=== PATIENT | female | born 1985 | race African-American/Black ===

== ENCOUNTER 2016-12-25 23:08 | Emergency (ER) | payer OTHER ==
[2016-12-25 23:32] VITALS: BP 131/77; PULSE 84; TEMP 98.6; BMI 32.8
[2016-12-26 00:09] LABS: BASOPHIL 0.2 % (0-2.0); EOSINOPHIL 1.1 % (0-4.5); MCH 26.7 pg (25.7-33.7); MCHC 32.8 g/dl (32.0-36.0); MEAN CELL VOLUME 81.3 fl (80-96); MEAN PLT VOLUME 8.1 fl (7.5-11.1); NEUTROPHILS 73.7 % (42.8-82.8); PLATELET COUNT 227 K/MM3 (134-434); RDW 14.9 % (11.6-15.6)
--- NOTE | 2016-12-26 00:16 | PDOC ---
History of Present Illness - General Chief Complaint: Vaginal Bleeding Stated Complaint: VAGINAL BLEEDING Time Seen by Provider: 12/25/16 23:12 - History of Present Illness Initial Comments: 12/26/16 00:01 CHIEF COMPLAINT: vaginal bleeding HISTORY OF PRESENT ILLNESS: 31 yo F (unknown EGA) with PMH of substance abuse presents to ED with vaginal bleeding since yesterday. Patient states she had a positive test two weeks ago and noticed some blood when she wipes over the last two days. She reports being on a methadone program for heroin abuse, she states she "started using heroin again when I got out of skilled nursing two weeks ago, I think the last time I used it was about a week ago." No recent travel or sick contacts. PAST MEDICAL HISTORY: Denies past medical history FAMILY HISTORY: Denies SOCIAL HISTORY: Currently on methadone program, last reported heroin use 1 week ago. Current smoker, 8 cigarettes daily. Marijuana use, 1 joint daily. Denies alcohol use. SURGICAL HISTORY: Denies ALLERGIES: No known drug allergies REVIEW OF SYSTEMS General/Constitutional: Denies fever or chills. Denies weakness, weight change. HEENT: Denies change in vision. Denies ear pain or discharge. Denies sore throat. Cardiovascular: Denies chest pain or shortness of breath. Respiratory: Denies cough, wheezing, or hemoptysis. Gastrointestinal: Denies nausea, vomiting, diarrhea or constipation. Denies rectal bleeding. Genitourinary: "I was spotting a little yesterday and I have a lot of mucus coming out." Denies dysuria, frequency, or change in urination. Musculoskeletal: Denies joint or muscle swelling or pain. Denies neck or back pain. Skin: Denies rash or easy bruising. Neurologic: Denies headache, vertigo, loss of consciousness, or loss of sensation. PHYSICAL EXAM General Appearance: Well-appearing, appropriately dressed. No apparent distress , no intoxication. HEENT: EOMI, PERRLA, normal ENT inspection, normal voice, TMs normal, pharynx normal. No conjunctival pallor. No photophobia, scleral icterus. Neck: Supple. Trachea midline. No tenderness, rigidity, carotid bruit, stridor , lymphadenopathy, or thyromegaly. Respiratory/Chest: Lungs CTAB. No shortness of breath, chest tenderness, respiratory distress, accessory muscle use. No crackles, rales, rhonchi, stridor , wheezing, dullness Cardiovascular: RRR. S1, S2. Gastrointestinal/Abdominal: Normal bowel sounds. Abdomen soft, non-distended. No tenderness or rebound tenderness. No organomegaly, pulsatile mass, guarding , hernia, hepatomegaly, splenomegaly. Pelvic: External genitalia normal without lesions. Vaginal vault with copious amount of thick yellow/green discharge. Cervix is long and closed. No cervical motion tenderness. Uterus is nontender and normal in size. Adnexa are nontender and without masses. Musculoskeletal/Extremities: Normal inspection. FROM of all extremities, normal capillary refill. Pelvis Stable. No CVA tenderness. No tenderness to extremities, pedal edema, swelling, erythema or deformity. Integumentary: Appropriate color, dry, warm. No cyanosis, erythema, jaundice or rash Neurologic: sanitation superintendent II-XII intact. Fully oriented, alert. Appropriate mood/affect. Motor strength 5/5. No appreciable EOM palsy, facial droop or sensory deficit. Past History - Past Medical History Allergies/Adverse Reactions: Allergies Allergy/AdvReac Type Severity Reaction Status Date / Time No Known Allergies Allergy Verified 12/25/16 23:31 Home Medications: Ambulatory Orders Acetaminophen [Tylenol .Regular Strength -] 650 mg PO Q4H PRN #0 tablet Ibuprofen [Motrin -] 600 mg PO Q4H PRN #0 tablet 04/10/13 Asthma: No Cancer: No Cardiac Disorders: No Diabetes: No HTN: No Seizures: No Thyroid Disease: No - Psycho/Social/Smoking Cessation Hx Suicidal Ideation: No Smoking Status: Yes Smoking History: Never smoked Have you smoked in the past 12 months: No Number of Cigarettes Smoked Daily: 3 Information on smoking cessation initiated: No Hx Alcohol Use: No Drug/Substance Use Hx: No Hx Substance Use Treatment: No *Physical Exam - Vital Signs Last Vital Signs Temp Pulse Resp BP Pulse Ox 98.6 F 84 20 131/77 99 12/25/16 23:31 12/25/16 23:31 12/25/16 23:31 12/25/16 23:31 12/25/16 23:31 ED Treatment Course - LABORATORY CBC & Chemistry Diagram: 12/25/16 23:51 Medical Decision Making - Medical Decision Making 12/26/16 01:33 31 yo F (unknown EGA) with PMH of substance abuse presents to ED with vaginal bleeding since yesterday. -CBC, T&S, beta hcg Pelvic exam with copious yellow/green discharge. Will treat for Ct/GC. -Ceftriaxone 250 mg IM -Azithromycin 1g po beta hcg ~40k -TV US to eval IUP/FHT 12/26/16 02:16 TV US: Findings: There is a live intrauterine gestation in breech orientation. A posterior placenta has a normal appearance, grade 1. A four-chamber heart is demonstrated with a heart rate of 132 beats per minute. measurements correspond to a gestational age of 23 weeks 4 days. The amniotic fluid is within normal limits. The fluid index is 12.3 cm, within normal limits. On endovaginal images the cervix appears slightly foreshortened to approximately 2.8 cm in length with funneling. Impression: Live intrauterine gestation of approximately 23 weeks 4 days in breech orientation. Slight foreshortening and funneling of the cervix. Read by: Hugh Lau M.D. Patient reassessed; nauseous and dry heaving. -10 mg [place], 25 mg Benadryl. Advised patient to f/u with OBGYN this week, referral provided. Advised patient of signs and symptoms for return to ER; patient verbalized understanding and agrees to plan. 12/26/16 02:35 *DC/Admit/Observation/Transfer Diagnosis at time of Disposition: Vaginal bleeding in Qualifiers: Trimester: second trimester Qualified Code(s): O46.92 - Antepartum hemorrhage, unspecified, second trimester - Discharge Dispostion Admit: No - Referrals Referrals: Angie Green MD [Staff Physician] - - Patient Instructions Printed Discharge Instructions: DI for Vaginal Bleeding During Additional Instructions: You MUST follow up with an OBGYN doctor THIS WEEK for further management of your . If you can, please stop using any heroin, marijuana, or cigarettes to protect your baby. If you experience severe vaginal bleeding ( more than one soaked pad an hour), headache, palpitations, abdominal pain, or any new or worsening symptoms, please return to the ER immediately.
[2016-12-26] MEDS ORDERED: AZITHROMYCIN 250 MG TABLET (FP) PO ONE (00:33)
[2016-12-26] MEDS ORDERED: AZITHROMYCIN 250 MG TABLET (FP) ONE (01:26)
[2016-12-26] MEDS ORDERED: cefTRIAXone SODIUM 1 GM VIAL ONE (01:27)
[2016-12-26] MEDS ORDERED: LIDOCAINE HCL/PF 1% SDV 5ML VIAL ONE (01:27)
[2016-12-26] MEDS ORDERED: diphenhydrAMINE HCL 25 MG CAPSULE (FP) PO ONE ×2 (02:25→03:01)
[2016-12-26] MEDS ORDERED: METOCLOPRAMIDE HCL 10 MG TABLET (FP) PO ONE ×2 (02:25→03:01)
--- NOTE | 2016-12-26 02:48 | PDOC ---
*Physical Exam - Vital Signs Last Vital Signs Temp Pulse Resp BP Pulse Ox 98.6 F 84 20 131/77 99 12/25/16 23:31 12/25/16 23:31 12/25/16 23:31 12/25/16 23:31 12/25/16 23:31 ED Treatment Course - LABORATORY CBC & Chemistry Diagram: 12/25/16 23:51 - ADDITIONAL ORDERS Additional order review: Laboratory Results 12/25/16 12/25/16 23:51 23:51 Beta HCG, Quant 22988.3 Blood Type A POSITIVE Antibody Screen Negative 12/25/16 23:51 RBC 4.18 MCV 81.3 MCHC 32.8 RDW 14.9 D MPV 8.1 D Neutrophils % 73.7 Lymphocytes % 16.0 Monocytes % 9.0 Eosinophils % 1.1 Basophils % 0.2 - Medications Given in the ED: ED Medications Discontinued Medications Generic Name Dose Route Start Last Admin Trade Name Freq PRN Reason Stop Dose Admin Azithromycin 1,000 mg 12/26/16 00:33 12/26/16 01:53 Zithromax - PO 12/26/16 00:34 1,000 mg ONCE ONE Administration Ceftriaxone Sodium 250 mg 12/26/16 00:33 12/26/16 01:52 Rocephin - IM 12/26/16 00:34 250 mg ONCE ONE Administration Medical Decision Making - Medical Decision Making 12/26/16 02:48 agree with care from DENISHA Méndez *DC/Admit/Observation/Transfer Diagnosis at time of Disposition: Vaginal bleeding in Qualifiers: Trimester: second trimester Qualified Code(s): O46.92 - Antepartum hemorrhage, unspecified, second trimester - Referrals Referrals: Angie Green MD [Staff Physician] - - Patient Instructions Printed Discharge Instructions: DI for Vaginal Bleeding During Additional Instructions: You MUST follow up with an OBGYN doctor THIS WEEK for further management of your . If you can, please stop using any heroin, marijuana, or cigarettes to protect your baby. If you experience severe vaginal bleeding ( more than one soaked pad an hour), headache, palpitations, abdominal pain, or any new or worsening symptoms, please return to the ER immediately. - Post Discharge Activity
== END 2016-12-26 03:12 | disposition home or self-care (01) ==
LOC: EDBD → JER 23:08
DX: O46.92 Antepartum hemorrhage, unspecified, second trimester (principal); O99.322 Drug use complicating pregnancy, second trimester; F11.20 Opioid dependence, uncomplicated; Z3A.23 23 weeks gestation of pregnancy
CPT/HCPCS: 36415; 76815-TC; 84702; 85025; 86850; 86900; 86901; 87491; 87591; 99282-25

== ENCOUNTER 2016-12-26 13:20 | Inpatient (IN) | payer OTHER ==
[2016-12-26] MEDS ORDERED: AMPICILLIN - 100 ML IVPB ONE (13:45)
[2016-12-26 14:01] VITALS: BMI 31.3
[2016-12-26 15:00] LABS: ARTERIAL BLD GAS O2 SATURATION 54.4 % (90-98.9); ARTERIAL BLOOD GAS BASE EXCESS -9.4 meq/l (-2-2)
[2016-12-26 15:02] LABS: LPM/O2% ROOM AIR; PT. ON O2? NO
[2016-12-26 15:04] LABS: ARTERIAL BLD GAS O2 SATURATION 82.9 % (90-98.9); ARTERIAL BLOOD GAS BASE EXCESS -6.5 meq/l (-2-2); ARTERIAL BLOOD GAS HCO3 19.4 meq/L (22-26); ARTERIAL BLOOD GAS pH 7.15 (7.35-7.45); ARTERIAL BLOOD GAS pH 7.29 (7.35-7.45)
[2016-12-26 15:05] LABS: ARTERIAL BLOOD GAS PO2 30.5 mmHg (80-100)
[2016-12-26 15:06] LABS: ARTERIAL BLOOD GAS PO2 42.6 mmHg (80-100); LPM/O2% 21%; PT. ON O2? NO; TYPE OF O2 ROOM AIR
--- NOTE | 2016-12-26 15:11 | HP ---
Past Medical History - Primary Care Physician PCP:: Angie Green - Admission Chief Complaint: 25 yrs , 23.5 weeks PROM at 12.45 pm in the [facility], seen by Dr Carlos in the clinic sent by [facility] to L&D . h/o previous c/ section x2 History of Present Illness: Pt was seen In [address] 12/26/16 at 2.00 am , ,,due to c/o mucous discharge & cramps & spotting. x2 days she was evaluated, sono was done reported as 23.4 weeks , breech, cx short,2.3 cm funelling., post placenta, SLIUP . she was given ceftriaxone 250 mg im & po Zithromax 1 gm & sent home instructed to follow in the clinic . she was released from snf in [place] 2 weeks ago . 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 last she used heroin 1 week ago she admitted to the ER physician she also was smoked Marijuana yesterday . . . . History Source: Patient, Medical Record - Past Medical History CREDIT COLLECTIONS ANALYST: No: Dementia, Seizure Cardiovascular: No: HTN Pulmonary: No: Asthma ...: 4 ...Para: 2 ...Term: 2 (2 c/sections in 2009 & 2012) ...Induced : 1 ...EDC by [facility]: 04/20/17 (23.4 weeks today ) Heme/Onc: Yes: Anemia Infectious Disease: Yes: STD's (h/o chlamydia when 18 yrs old) - Past Surgical History Past Surgical History: Yes: (2009& 2012) Hx Myomectomy: No Hx Transabdominal Cerclage: No - Smoking History Smoking history: Current some day smoker Have you smoked in the past 12 months: Yes Aproximately how many cigarettes per day: 8 - Alcohol/Substance Use Hx Alcohol Use: No History of Substance Use: reports: Heroin (pt on Methadone program 150 mg po daily) - Social History History of Recent Travel: No Home Medications - Allergies Allergies/Adverse Reactions: Allergies Allergy/AdvReac Type Severity Reaction Status Date / Time No Known Allergies Allergy Verified 12/25/16 23:31 - Home Medications Home Medications: Ambulatory Orders Acetaminophen [Tylenol .Regular Strength -] 650 mg PO Q4H PRN #0 tablet Ibuprofen [Motrin -] 600 mg PO Q4H PRN #0 tablet 04/10/13 Acetaminophen [Tylenol .Regular Strength -] 650 mg PO Q3H PRN #0 tablet Ferrous Sulfate [Feosol] 325 mg PO TIDCM #60 ud 12/26/16 Ibuprofen [Motrin -] 200 mg PO Q4H PRN #0 tablet 12/26/16 Methadone [Dolophine -] 150 mg PO DAILY@0600 tablet MDD 150 mg po daily Vitamins (Sjr) - 1 tab PO DAILY #30 tablet 12/26/16 Physical Exam - Maternity Vital Signs: Vital Signs Temperature 97.3 F L 12/26/16 13:51 Pulse Rate 89 12/26/16 13:51 Respiratory Rate 20 12/26/16 13:51 Blood Pressure 137/76 12/26/16 13:51 O2 Sat by Pulse Oximetry (%) Constitutional: Yes: Severe Distress, Obese, Other (pt crying) Eyes: Yes: WNL HENT: Yes: WNL Neck: Yes: WNL Cardiovascular: Yes: WNL Lungs: Clear to auscultation Breast(s): Yes: WNL (large breast) - Abdominal Exam/OB Number of Fetuses: Single Presentation: Breech (exam at 2.25 pm) Contractions: Yes Regularity: Cramping Monitor Mode: External Heart Rate (range): 168 Heart Rate Location: Midline (unable to record good continuous monitring) Accelerations: None Decelerations: None - Vaginal Exam/OB Vaginal Bleediing: Yes, Old Blood Speculum Exam: Yes Dilatation (cm): 8 Effacement (%): 100 Amniotic Membrane Status: Ruptured Nitrazine Test: Positive Amniotic Fluid: Yes: Meconium Stained Presentation: Double Footling Breech Station: +1 - Physical Exam Extremities: Yes: WNL. No: Calf Tenderness Edema: LUE: Trace, RUE: Trace, LLE: Trace, RLE: Trace Integumentary: Yes: Incision (old pfannensteil scar), Tattoos Deep Tendon Reflex Grade: Normal +2 Psychiatric: Yes: WNL, Alert, Oriented, Agitated (crying , upset) Problem List - Problems (1) with 23 completed weeks gestation Code(s): Z3A.23 - 23 WEEKS GESTATION OF (2) premature rupture of membranes (PPROM) delivered, current hospitalization Code(s): O42.919 - PRETRM MANGO ROM, UNSP TIME BETW RUPT AND ONST LABR, UNSP TRI (3) Double footling breech presentation Code(s): O32.8XX0 - MATERNAL CARE FOR OTH MALPRESENTATION OF FETUS, UNSP Qualifiers: Fetus number: single or unspecified fetus Qualified Code(s): O32.8XX0 - Maternal care for other malpresentation of fetus, not applicable or unspecified (4) No care in current in second trimester Code(s): O09.32 - SUPRVSN OF PREG W INSUFFICIENT ANTENAT CARE, SECOND TRI (5) Substance abuse affecting in second trimester, antepartum Code(s): O99.322 - DRUG USE COMPLICATING , SECOND TRIMESTER F19.10 - OTHER PSYCHOACTIVE SUBSTANCE ABUSE, UNCOMPLICATED (6) , delivered, current hospitalization Code(s): O34.21 - MATERNAL CARE FOR SCAR FROM PREVIOUS * DO NOT USE * Assessment/Plan 31 yrs 23. 5 weeks , no care, breech in active labor , half of the fetus felt in vagina, previous c/s x2, it is prudent to deliver vaginally . 2. 32 pm fully dilate, single foot otof vagina 2.34 double footling breech delivered vaginally , flame cutting machine operator in the room, 011 , intubated . baby after 12 min of . 3.40 pm Placenta not delivered , retained 1 hr after delivery, bleeding, hence pt is taken for MRP & possible curetage under GA . pt explained , consent obtained
[2016-12-26 15:19] LABS: BASOPHIL 0.1 % (0-2.0); EOSINOPHIL 0.2 % (0-4.5); MCH 26.7 pg (25.7-33.7); MEAN PLT VOLUME 8.1 fl (7.5-11.1); NEUTROPHILS 85.5 % (42.8-82.8); PLATELET COUNT 220 K/MM3 (134-434); RDW 14.7 % (11.6-15.6); WHITE BLOOD COUNT 9.4 K/mm3 (4.0-10.0)
[2016-12-26 15:37] LABS: ALBUMIN 2.5 g/dl (3.4-5.0); ALK PHOS 84 U/L (45-117); ANION GAP 9 (8-16); BILIRUBIN,TOTAL 0.2 mg/dL (0.2-1.0); CALCIUM 8.5 mg/dL (8.5-10.1); CO2 23 mmol/L (21-32); CREATININE 0.5 mg/dL (0.55-1.02); GLUCOSE,RANDOM 137 mg/dL (74-106); HIV 1 & 2 AB NEGATIVE; HIV 1 AGp24 NEGATIVE; SGOT/AST 8 U/L (15-37); SGPT/ALT 14 U/L (12-78); TOT PROT 6.3 g/dl (6.4-8.2)
[2016-12-26] MEDS ORDERED: ONDANSETRON 4 MG/2 ML VIAL IVPUSH PRN (15:37)
[2016-12-26] MEDS ORDERED: PROMETHAZINE HCL 25 MG/1 ML VIAL IVPUSH PRN (15:37)
[2016-12-26 15:38] LABS: INR 1.16 (0.82-1.09); PROTHROMBIN TIME (PATIENT) 12.8 SEC (9.98-11.88)
[2016-12-26 15:41] LABS: ACTIVATED PTT 30.9 SECONDS (26.9-34.4)
[2016-12-26] MEDS ORDERED: LACTATED RINGERS SOLUTION 1,000 ML IV SCH (15:45)
[2016-12-26] MEDS ORDERED: PROPOFOL 20 ML ONE ×2 (15:50→15:51)
[2016-12-26] MEDS ORDERED: SUCCINYLCHOLINE CHLORIDE 200 MG/10 ML VIAL ONE (15:50)
[2016-12-26] MEDS ORDERED: MIDAZOLAM HCL 2 MG/2 ML SINGLE DOSE VIAL ONE (15:51)
[2016-12-26] MEDS ORDERED: ROCURONIUM BROMIDE 50 MG/5 ML VIAL ONE (15:51)
[2016-12-26] MEDS ORDERED: DEXAMETHASONE SOD PHOSPHATE 4 MG/1 ML VIAL ONE (15:59)
[2016-12-26] MEDS ORDERED: ceFAZolin SODIUM 1 GM VIAL IVPB ONE (16:02)
[2016-12-26] MEDS ORDERED: ceFAZolin SODIUM 1 GM VIAL ONE (16:04)
[2016-12-26] MEDS ORDERED: AMPICILLIN - 100 ML IVPB SCH (16:45)
[2016-12-26] MEDS ORDERED: BENZOCAINE 28 GM HEMORRHOIDAL OINTMENT TP PRN (16:46)
[2016-12-26] MEDS ORDERED: IBUPROFEN 600 MG TABLET (FP) PO PRN (16:46)
[2016-12-26] MEDS ORDERED: WITCH HAZEL 50% (TUCKS) 40 PAD/JAR PAD TP PRN (16:46)
[2016-12-26] MEDS ORDERED: BENZOCAINE 20% 57 GM BOTTLE TP PRN (16:46)
[2016-12-26] MEDS ORDERED: oxyCODONE HCL 5 MG TABLET PO PRN (16:46)
[2016-12-26] MEDS ORDERED: ACETAMINOPHEN 325 MG TABLET (FP) PO PRN (16:46)
[2016-12-26] MEDS ORDERED: BISACODYL 10 MG SUPP.RECT RC PRN (16:46)
[2016-12-26] MEDS ORDERED: METHYLERGONOVINE MALEATE 0.2 MG/1 ML AMP IM PRN (16:46)
[2016-12-26 16:54] LABS: URINE APPEARANCE CLEAR; URINE BILIRUBIN NEGATIVE (NEGATIVE); URINE BLOOD NEGATIVE (NEGATIVE); URINE COLOR YELLOW; URINE GLUCOSE (UA) 1+ (NEGATIVE); URINE KETONE NEGATIVE (NEGATIVE); URINE NITRITE NEGATIVE (NEGATIVE); URINE UROBILINOGEN 2.0 E.U/dl E.U./dl (0.2-1.0)
[2016-12-26 16:56] LABS: URINE LEUK ESTERASE TRACE (NEGATIVE); URINE PROTEIN 1+ (NEGATIVE)
[2016-12-26] MEDS ORDERED: OXYTOCIN 20 UNITS in 0.9% NS 1,000 ML IV SCH (17:00)
--- NOTE | 2016-12-26 17:02 | PN ---
Delivery - Delivery Vaginal Delivery: Breech (first single foot & then other foot leg was delivered , until body came down to lower end of scapula , ant arm delivered, baby was turned & then 2nd arm was delivered lastly head was delivered), Spontaneous Episiotomy/Laceration: None EBL (cc): 400 (bladder catheterized 250 ml urine out ) Delivery, Single - Stages of Labor Date 1st Stage Initiatied: 12/26/16 Time 1st Stage Initiated: 13:00 Date 2nd Stage Initiated: 12/26/16 Time 2nd Stage Initiated: 14:32 Date of Delivery: 12/26/16 Time of Delivery: 14:34 Placenta: Yes: Manual Removal (patient was taken to OR,for retained placenta bleeding under GA MRP was done followed by curettage to confirm completion of procedure), Uterine Exploration - Condition of Newspaper Photo Editor/Lawyer Criminal Present: Yes Name: Sam Tsai Infant Gender: Female Weight: 1 lb 3 oz Position: SA - 1 Minute Total Score: 0 5 Minutes Total Score: 1 10 Minutes Total Score: 1 15 Minutes Total Score: 0 - Feeding Plan Initial Plan: Elected not to breastfeed exclusively throughout hospitalization Remarks - Remarks Remarks: 31 yrs , 23.5 weeks iup,previous c/sx2, no care , admitted in active labor with PPROM , .. no care h/o [place] abuse , marijuana & on Methadone 150 mg po daily . cigrette smoking . pt was given 2 gm iv Ampicillin upon arrival . she received iv ancef 1 gm in OR prior to MRP & curretage for retained placenta .. . Note baby was pronounced at 2.46 pm by trailer mechanic .
[2016-12-26 17:05] LABS: URINE MUCUS FEW; URINE RBC 1 /hpf (0-3); URINE WBC 1 /hpf (3-5)
[2016-12-26] MEDS ORDERED: OXYTOCIN 10 UNITS/ML VIAL ONE (17:15)
[2016-12-26 17:18] LABS: URINE MARIJUANA THC POSITIVE ng/ml (CUTOFF=50)
[2016-12-26] MEDS: FERROUS SO4 325 MG TABLET (FP) PO SCH (18:13)
[2016-12-26] MEDS ORDERED: diphenhydrAMINE HCL 25 MG CAPSULE (FP) PO ONE (21:45)
--- NOTE | 2016-12-27 07:27 | PN ---
Progress Note (short form) - Note Progress Note: Post op day#1.S/P D&C with manual extraction of placenta under ga uneventful.Patient stable.No any anesthesia related problem.Patient DC from the anesthesia care.
[2016-12-27] MEDS ORDERED: METHADONE HCL 10 MG TABLET PO ONE (07:52)
[2016-12-27 08:09] VITALS: BP 103/48; PULSE 58; TEMP 98.2
[2016-12-27 08:12] LABS: BASOPHIL 0.2 % (0-2.0); EOSINOPHIL 0.6 % (0-4.5); MCH 26.5 pg (25.7-33.7); MCHC 32.4 g/dl (32.0-36.0); MEAN CELL VOLUME 81.8 fl (80-96); MEAN PLT VOLUME 8.2 fl (7.5-11.1); NEUTROPHILS 75.3 % (42.8-82.8); PLATELET COUNT 191 K/MM3 (134-434); RDW 14.8 % (11.6-15.6); WHITE BLOOD COUNT 11.7 K/mm3 (4.0-10.0)
[2016-12-27] MEDS: FERROUS SO4 325 MG TABLET (FP) PO SCH (08:51)
[2016-12-27] MEDS: PRENATAL VITAMINS W/ FOLIC ACID TABLET (FP) PO SCH ×2 (08:51→10:45)
[2016-12-27] MEDS ORDERED: METHADONE 80 MG, METHADONE 30 MG, METHADONE 5 MG PO ONE (09:00)
--- NOTE | 2016-12-27 09:20 | PN ---
Progress Note (short form) - Note Progress Note: ppd 1 no c/o no excess vaginal bleeding, no dizziness CBC, BMP 12/27/16 07:45 12/26/16 15:00 Last Vital Signs Temp Pulse Resp BP Pulse Ox 98.2 F 58 L 20 103/48 99 12/27/16 08:08 12/27/16 08:08 12/27/16 08:08 12/27/16 08:08 12/26/16 17:30 uterus firm, non tender lochia mild plan social service consult d/c home follow up [facility] care 4 weeks
--- NOTE | 2016-12-27 19:13 | OP ---
DATE OF OPERATION: 12/26/2016 PREOPERATIVE DIAGNOSIS: Retained placenta status post breach vaginal delivery for a 23.5-weeks gestation. The patient bleeding. POSTOPERATIVE DIAGNOSIS: Retained placenta status post breach vaginal delivery for a 23.5-weeks gestation. The patient bleeding. OPERATION PERFORMED: Manual removal of placenta and curettage of the uterus. PROCEDURE IN DETAIL: The patient was taken to the operating room table. General anesthesia was given. The patient was placed in lithotomy position. Pubis, perineum and vagina were painted with Betadine and draped in the usual manner. The patient was catheterized prior to bringing to the OR. Then, vaginal examination was done. Manually, the placenta was attempted to be removed and could not be removed so the weighted speculum was placed anterior lip of the cervix was held with Ring forceps and with the another Ring forceps the placental membranes were twisted and tried to bring it down. I tried to go in between the cleavage plane of the uterus and the placenta.membranes The placenta was from the uterus. The anesthesiologist was asked to give IV Pitocin to the patient and the placenta was completely removed. The curettage was then done to make sure a the completion of the procedure the placenta was completely removed. The patient tolerated the procedure well. She was transferred to the recovery room in stable condition. ESTIMATED BLOOD LOSS: In the OR was approximately 200 mL. GERMAINE NICK M.D. [id number] MTDD
[2016-12-27] MEDS ORDERED: SENNOSIDES/DOCUSATE COMBO (SENNA PLUS) TABLET (UD) PO PRN (22:00)
[2016-12-28] MEDS ORDERED: METHADONE HCL 5 MG TABLET PO SCH (06:00)
--- NOTE | 2016-12-30 15:38 | PATH ---
Surgical Pathology Report Patient Name: VAIBHAV BOWEN [facility]. Rec. #: [id number] /Age/Gender: 1985 (Age: 31) / F Account: [id number] Location: [facility] OBS/GLUE BONE DRIER Taken: 12/26/2016 Received: 12/27/2016 Reported: 12/30/2016 Physicians: Angie Green M.D. Specimen(s) Received A: RETAINED PLACENTA B: UMBILICAL CORD Clinical History Retained placenta Final Diagnosis A. RETAINED PLACENTA, MANUAL REMOVAL: FRAGMENTED IMMATURE PLACENTA WITH VILLOUS DYSMATURITY, MILD PERIVILLOUS, AND PRECHORIONIC FIBRIN DEPOSITION, FOCAL CALCIFICATIONS, THREE VESSEL UMBILICAL CORD WITH ACUTE FUNISITIS, AND PLACENTAL MEMBRANES WITH ACUTE NECROTIZING CHORIOAMNIONITIS, CHORIONIC VASCULITIS AND ACUTE NECROTIZING INFLAMMATION OF CHORIONIC PLATE. B. FRAGMENT OF UMBILICAL CORD: THREE VESSEL UMBILICAL CORD WITH ACUTE FUNISITIS. Electronically Signed Silviano Villalta M.D. Gross Description A. Received fresh, labeled "placenta" is a 350 g, 18.0 x 15.0 x 3.5 cm aggregate of multiple portions of a fragmented placenta. The membranes are gibson and cloudy. The membrane insertion cannot be determined grossly. The umbilical cord measures 9 cm in length and averages 0.9 cm in diameter. The umbilical cord insertion site cannot be determined grossly. No true knots or strictures are identified. Cut surface of the umbilical cord reveals 3 vessels. The placenta is markedly fragmented. Sectioning reveals pink-gibson, spongy parenchyma. No intraparenchymal lesions are identified grossly. Drive Thru Order Taker sections are submitted in 3 cassettes as follows: 1-membrane rolls and umbilical cord; 9-4-[id number] of placenta. B. Received fresh, labeled with the patient's name and indicated on the requisition to be "from labor and delivery" are 2 portions of umbilical cord measuring 11.0 and 16.0 cm in length and averaging 1.0 cm in diameter. The longer portion of umbilical cord displays 2 attached clips. No true knots or strictures are identified. Cut surface of both portions of umbilical cord reveals [address] Drive Thru Order Taker sections are submitted in one cassette. 12/27/201612/27/2016
--- NOTE | 2017-01-01 00:33 | DS ---
Physical Exam-TOOL AND CUTTER GRINDER Vital Signs: Vital Signs Temperature 98.2 F 12/27/16 08:08 Pulse Rate 58 L 12/27/16 08:08 Respiratory Rate 20 12/27/16 08:08 Blood Pressure 103/48 12/27/16 08:08 O2 Sat by Pulse Oximetry (%) 99 12/26/16 17:30 Constitutional: Yes: Well Nourished, Pallor Eyes: Yes: WNL HENT: Yes: WNL Neck: Yes: WNL Cardiovascular: Yes: WNL Respiratory: Yes: WNL Gastrointestinal: Yes: WNL ....Post : Yes: Uterus firm, Uterus non-tender, Moderate lochia rubra ( perineum intact) Breast(s): Yes: WNL Musculoskeletal: Yes: WNL Extremities: Yes: WNL. No: Calf Tenderness Edema: No Integumentary: Yes: WNL, Incision (old pfannesteil scar), Tattoos Neurological: Yes: WNL ...Motor Strength: WNL Psychiatric: Yes: WNL, Alert, Oriented Labs: CBC, BMP 12/27/16 07:45 12/26/16 15:00 Delivery - Delivery Vaginal Delivery: Breech (first single foot & then other foot leg was delivered , until body came down to lower end of scapula , ant arm delivered, baby was turned & then 2nd arm was delivered lastly head was delivered), Spontaneous Episiotomy/Laceration: None EBL (cc): 400 (bladder catheterized 250 ml urine out ) Delivery, Single - Stages of Labor Date 1st Stage Initiatied: 12/26/16 Time 1st Stage Initiated: 13:00 Date 2nd Stage Initiated: 12/26/16 Time 2nd Stage Initiated: 14:32 Date of Delivery: 12/26/16 Time of Delivery: 14:34 Time Placenta Delivered: 16:00 Placenta: Yes: Manual Removal (patient was taken to OR,for retained placenta bleeding under GA MRP was done followed by curettage to confirm completion of procedure), Uterine Exploration - Condition of Infant Clinical Resource Coordinator/Trial Management Associate Present: Yes Name: Sam Tsai Infant Gender: Female Weight: 1 lb 3 oz Position: SA - 1 Minute Total Score: 0 5 Minutes Total Score: 1 10 Minutes Total Score: 1 15 Minutes Total Score: 0 - Feeding Plan Initial Plan: Elected not to breastfeed exclusively throughout hospitalization Remarks - Remarks Remarks: 31 yrs , 23.5 weeks iup,previous c/sx2, no care , admitted in active labor with PPROM , .. no care h/o [place] abuse , marijuana & on Methadone 150 mg po daily . cigrette smoking . pt was given 2 gm iv Ampicillin upon arrival . she received iv ancef 1 gm in OR prior to MRP & curettage for retained placenta .. . Note baby was pronounced at 2.46 pm by lamp cleaner . pp course uneventful. Anemia counselled discharge on 12/27/[address] Aguilar Discharge Summary Reason For Visit: LABOR Condition: Stable - Instructions Diet, Activity, Other Instructions: Post Instructions DIET: Continue good diet high in protein, calcium, and iron rich foods. Drink at least eight (8) glasses of water daily in addition to other fluids. Regular diet MEDICATIONS: Continue vitamins and iron as previously directed. Motrin and Tylenol may be taken for minor discomfort. ACTIVITY: Mild to moderate exercise may be started in two (2) weeks. Take frequent rest periods. Resume normal activity after six (6) week check up. WOUND CARE OF OPERATIVE SITE: Continue use of perineal bottle until vaginal discharge stops. Keep area clean. Shower daily. Keep abdominal wound dry. Report any drainage or redness to physician. Tub baths, tampons and douches are not permitted for 6 weeks. BREAST CARE: (For those that are not ): If engorgement occurs: Wear tight fitting bra. Take Tylenol or Motrin for pain. Apply cold packs (ice in bags to each breast ) FAMILY PLANNING: There are many control alternatives to pursue and they should be discussed at your first office visit. You may resume sexual activity after your six (6) week check up. NEXT PHYSICIAN APPOINTMENT: Be certain to call for a six (6) week appointment, unless otherwise directed. Call Clinic or got to Emergency Dept if you have any of the following: Heavy vaginal bleeding Painful urination Leg pain Unusual odor noted to vaginal bleeding High fever Red streaking noted on breast return to clinic in 6 weeks. call [facility] for appointment. [phone] Referrals: Angie Green MD [Staff Physician] - Disposition: HOME - Home Medications Comprehensive Discharge Medication List: Ambulatory Orders Acetaminophen [Tylenol .Regular Strength -] 650 mg PO Q4H PRN #0 tablet Ibuprofen [Motrin -] 600 mg PO Q4H PRN #0 tablet 04/10/13 Acetaminophen [Tylenol .Regular Strength -] 650 mg PO Q3H PRN #0 tablet Ferrous Sulfate [Feosol] 325 mg PO TIDCM #60 ud 12/26/16 Ibuprofen [Motrin -] 200 mg PO Q4H PRN #0 tablet 12/26/16 Methadone [Dolophine -] 150 mg PO DAILY@0600 tablet MDD 150 mg po daily Vitamins (Sjr) - 1 tab PO DAILY #30 tablet 12/26/16
== END 2016-12-27 11:40 | disposition home or self-care (01) | DRG 541 ==
LOC: JLDR 13:20 → EDBD 13:20 → J3W 17:50
PROVIDERS: ADMIT Obstetrics & Gynecology; ATTEND Obstetrics & Gynecology
PROC: 10D17ZZ Extraction of Products of Conception, Retained, Via Natural or Artificial Opening (ICD-10-PCS; 2016-12-26)
PROC: 10E0XZZ Delivery of Products of Conception, External Approach (ICD-10-PCS; principal; 2016-12-26 15:45)
DX: O42.912 Preterm premature rupture of membranes, unspecified as to length of time between rupture and onset of labor, second trimester (principal); O32.8XX0 Maternal care for other malpresentation of fetus, not applicable or unspecified; O99.324 Drug use complicating childbirth; F19.10 Other psychoactive substance abuse, uncomplicated; O09.32 Supervision of pregnancy with insufficient antenatal care, second trimester; O99.334 Smoking (tobacco) complicating childbirth; Z3A.23 23 weeks gestation of pregnancy; Z37.1 Single stillbirth; O72.2 Delayed and secondary postpartum hemorrhage
CPT/HCPCS: 36415; 36600; 59409; 76801-TC; 80053; 80307; 81003; 81015; 82803; 85025; 85610; 85730; 86593; 86762; 86850; 86900; 86901; 87086; 87340; 87389; 88304-TC; 88307-TC; 94760

== ENCOUNTER 2019-08-30 11:56 | Emergency (ER) | payer SELFPAY ==
[2019-08-30 12:20] VITALS: BMI 25.0
--- NOTE | 2019-08-30 14:29 | PDOC ---
Attending Attestation - Resident Resident Name: TelloCrow - ED Attending Attestation I have performed the following: I have examined & evaluated the patient, The case was reviewed & discussed with the resident, I agree w/resident's findings & plan, Exceptions are as noted - HPI HPI: 08/30/19 14:27 34-year-old female history of polysubstance abuse including cocaine opiates and alcohol here for from labor and delivery currently approximately 20+ weeks for intoxication and altered mental status. Patient was in labor and delivery for monitoring. Did have a biophysical profile which was showed a normal fetus at 29 weeks and monitoring showing no contractions. Patient does have a history of labor and demise per chart review and 2 previous children currently in CPS. Patient at this time is a very poor historian and difficult to arouse but is arousable to loud voice states that she drinks some juice this morning denies any nausea vomiting . Is unable to provide any additional history as to what she recently ingested or when was the last time she used any drugs - Physicial Exam PE: 08/30/19 14:28 Patient is drowsy but arousable to sternal rub and loud voice lungs are clear bilaterally heart is regular tachycardia no murmurs rubs or gallops abdomen is soft gravid nontender extremities are warm and well-perfused neurologically she moves all 4 extremities is somnolent but arousable - Medical Decision Making 08/30/19 14:28 34-year-old female history of polysubstance abuse currently 29 weeks here with concerns for altered mental status and acute intoxication from labor and delivery. Patient has a live IUP her prior labor and delivery evaluation differential includes acute intoxication with opiates versus alcohol plan patient already had CBC CMP which are reviewed we will add an alcohol level patient will require observation until she is clinically more alert and sober focused ED ultrasound to evaluate well-being demonstrated a live IUP with movement and heart rate of 130 bpm 08/30/19 15:43 pt alcohol level is negative. positive for cocaine and opiate. per report pt was found outside a apartment building , brought to labor and delivery because she was so out of it. pt states she is more alert now, she overdosed on heroin. also has been using cocain. has not slept in several days. is currently homeless. will d/w case management. d/w [facility], told they do not admit women. Heart Score/ECG Review #1 General ECG Interpretation: Sinus Rhythm, Normal Rate (93), Normal Intervals, No acute ischemic changes
--- NOTE | 2019-08-30 15:36 | PDOC ---
History of Present Illness <Heather Rojas - Last Filed: 08/30/19 16:43> - History of Present Illness Initial Comments: 08/30/19 16:05 34 yrs , previous c/section x2 , brought by ambulance from street near [facility] building where she was found to be 7months & was sleeping on staircase. EMT had responded to 911 call Found by L&D to test positive for cocaine and heroin. pt is unable to give history herself she is drowsy can be awakened urine drug screen was positive for opiates, cocaine, marijuana, methadone Hbsag neg, rpr neg, hiv neg , rubella immune ,A-POS No care m homeless, express desire to go to detox/rehab. Fetus cleared by L&D <Crow Tello - Last Filed: 08/31/19 13:06> - General Chief Complaint: Alcohol intoxication Stated Complaint: DETOX Time Seen by Provider: 08/30/19 12:48 Past History <Heather Rojas - Last Filed: 08/30/19 16:43> - Past Medical History Asthma: No Cancer: No Cardiac Disorders: No COPD: No Diabetes: No HTN: No Seizures: No Thyroid Disease: No - Psycho Social/Smoking Cessation Hx Smoking Status: Yes Smoking History: Unknown if ever smoked Have you smoked in the past 12 months: No Number of Cigarettes Smoked Daily: 8 Information on smoking cessation initiated: No Hx Alcohol Use: No Drug/Substance Use Hx: No Hx Substance Use Treatment: Yes <Crow Tello - Last Filed: 08/31/19 13:06> - Past Medical History Allergies/Adverse Reactions: Allergies Allergy/AdvReac Type Severity Reaction Status Date / Time No Known Allergies Allergy Verified 08/30/19 12:21 Home Medications: Ambulatory Orders Nitrofurantoin Monohyd/M-Cryst [Macrobid -] 100 mg PO BID #14 capsule 08/30/19 Review of Systems - Review of Systems Able to Perform ROS?: No (lethargic) <Crow Tello - Last Filed: 08/31/19 13:06> *Physical Exam - Vital Signs Last Vital Signs Temp Pulse Resp BP Pulse Ox 98.3 F 98 H 16 116/81 100 08/30/19 12:04 08/30/19 12:04 08/30/19 12:04 08/30/19 12:04 08/30/19 12:04 <Heather Rojas - Last Filed: 08/30/19 16:43> - Vital Signs Last Vital Signs Temp Pulse Resp BP Pulse Ox 98.3 F 98 H 16 116/81 100 08/30/19 12:04 08/30/19 12:04 08/30/19 12:04 08/30/19 12:04 08/30/19 12:04 - Physical Exam General Appearance: Yes: Intoxicated, Other (difficult to around but breathing normally) HEENT: positive: EOMI, HUGH, Normal ENT Inspection Respiratory/Chest: positive: Lungs Clear, Normal Breath Sounds. negative: Chest Tender, Respiratory Distress Cardiovascular: positive: Regular Rhythm, Regular Rate, S1, S2 Gastrointestinal/Abdominal: positive: Normal Bowel Sounds, Soft, Protuberent. negative: Tender Musculoskeletal: positive: Normal Inspection. negative: CVA Tenderness Integumentary: positive: Normal Color, Dry, Warm Neurologic: positive: Depressed Affect, Other (lethargic, arousable to pain and able to communicate but falls back asleep immediately) <Crow Tello - Last Filed: 08/31/19 13:06> ED Treatment Course - ADDITIONAL ORDERS Additional order review: Laboratory Results 08/30/19 15:00 Alcohol, Quantitative < 3.0 <Heather Rojas - Last Filed: 08/30/19 16:43> - ADDITIONAL ORDERS Additional order review: Laboratory Results 08/30/19 15:00 Alcohol, Quantitative < 3.0 <Crow Tello - Last Filed: 08/31/19 13:06> Medical Decision Making - Medical Decision Making 08/31/19 13:04 34 yrs , previous c/section x2 , brought by ambulance from street near [facility] where she was found to be 7months & was sleeping on staircase. Decision to not give Naloxone due to and stable vitals. Alcohol level sent was negative. PAtient eventually woke up and ate. commercial lines account manager was able to get her placed to detox at [facility] ([facility] was beyond capacity) Patient sent there was taxi paid for by hospital. <Crow Tello - Last Filed: 08/31/19 13:06> Discharge <Heather Rojas - Last Filed: 08/30/19 16:43> - Discharge Information Problems reviewed: Yes - Admission No <Crow Tello - Last Filed: 08/31/19 13:06> - Discharge Information Clinical Impression/Diagnosis: Desire for detoxification, Opiate abuse, continuous, Substance abuse affecting in second trimester, antepartum, UTI (urinary tract infection) Condition: Guarded Disposition: HOME - Additional Discharge Information Prescriptions: Nitrofurantoin Monohyd/M-Cryst [Macrobid -] 100 mg PO BID #14 capsule - Patient Discharge Instructions Patient Printed Discharge Instructions: Medications and , Urinary Tract Infection, DI for Alcohol Abuse Additional Instructions: You're going to [facility] for detoxification. Good luck with all your future endeavors. your urine shows you have a urinary tract infection. you should take macrobid twice daily 100 mg x 7 days to treat your urinary tract infection.
[2019-08-30 17:07] VITALS: BP 134/87; PULSE 89; TEMP 98.2
[2019-08-30] MEDS ORDERED: NITROFURANTOIN MACROCRYSTAL 50 MG CAPSULE (FP) ONE (17:08)
[2019-08-30] MEDS: NITROFURANTOIN MACROCRYSTAL 50 MG CAPSULE (FP) PO SCH ×2 (17:08→17:14)
--- NOTE | 2019-08-31 11:05 | EKG ---
Test Reason : Blood Pressure : / mmHG Vent. Rate : 093 BPM Atrial Rate : 093 BPM P-R Int : 148 ms QRS Dur : 104 ms QT Int : 378 ms P-R-T Axes : 062 038 048 degrees QTc Int : 469 ms NORMAL SINUS RHYTHM NORMAL ECG NO PREVIOUS ECGS AVAILABLE Confirmed by Waylon Springer MD ([id number]) on 08/31/2019 11:05:20 AM Referred By: Confirmed By:Waylon Springer MD
== END 2019-08-30 17:15 | disposition home or self-care (01) ==
LOC: JER 11:56
PROC: BY4FZZZ Ultrasonography of Third Trimester, Single Fetus (ICD-10-PCS; principal; 2019-08-30)
DX: O26.893 Other specified pregnancy related conditions, third trimester (principal); O23.43 Unspecified infection of urinary tract in pregnancy, third trimester; O99.323 Drug use complicating pregnancy, third trimester; F11.10 Opioid abuse, uncomplicated; O99.313 Alcohol use complicating pregnancy, third trimester; F10.129 Alcohol abuse with intoxication, unspecified; F14.10 Cocaine abuse, uncomplicated; Z3A.29 29 weeks gestation of pregnancy; Y90.0 Blood alcohol level of less than 20 mg/100 ml; Z59.0 Homelessness
CPT/HCPCS: 36415; 76815; 80307; 93005; 93010; 99283-25

== ENCOUNTER 2019-11-20 17:05 | Inpatient (IN) | payer OTHER ==
[2019-11-20] MEDS ORDERED: LABETALOL HCL 5 MG/1 ML (100MG/20 ML VIAL) IVPB ONE (17:25)
[2019-11-20] MEDS ORDERED: CITRIC ACID/SODIUM CITRATE 30 ML UNIT-DOSE CUP PO ONE (17:29)
[2019-11-20] MEDS ORDERED: ELECTROLYTE-148 SOLN 500 ML IV ONE (17:29)
--- NOTE | 2019-11-20 17:42 | HP ---
Past Medical History - Primary Care Physician PCP:: Angie Green - Admission Chief Complaint: 34 yrs , EDC 11/22/19 39.5/7 weeks iup , brought by EMT. , previous c/s x2 ,onset LP since today noon. srom at 4.50 pm History of Present Illness: pnc none [facility] h/o Hypertension . does not know the meds History Source: Patient Limitations to Obtaining History: Uncooperative, Other (pt is under influence of substance abuse answers are incoherrent) - Past Medical History [employer]: Yes: Other (unabke to obtain) Cardiovascular: Yes: Other (not known) Pulmonary: Yes: Bronchitis Gastrointestinal: Yes: Other (? diarrhea) Hepatobiliary: Yes: Other (not known) Renal/: Yes: Other (not known) ...: 5 ...Para: 2 (primary c/section 2009, repeatc/s 2012) ...Term: 2 ...Spon : 1 (23 weeks breech 2017) ...Induced : 1 (4months 2017 ) ...EDC by Dates: 11/22/19 (39.5 ) Heme/Onc: Yes: Anemia (iron deff anemia) Infectious Disease: Yes: STD's (h/o chlamydia when 18 yrs old) Psych: Yes: Addictions (substance cocaine, heroin, crack), Other (unknown) Musculoskeletal: Yes: Other (unknown) Rheumatology: Yes: Other (unknown) Endocrine: Yes: Other (unknown) Dermatology: Yes: Other (unknown) - Past Surgical History Past Surgical History: Yes: (2009 & 2012) Hx Myomectomy: No Hx Transabdominal Cerclage: No - Smoking History Have you smoked in the past 12 months: Yes Aproximately how many cigarettes per day: 8 - Alcohol/Substance Use Hx Alcohol Use: No History of Substance Use: reports: Cocaine (also uses crack), Heroin (pt on Methadone program 150 mg po daily in 2017 pt states she inhales, she does not do IVDA) - Social History Usual Living Arrangement: Yes: Other (pt does not have custody of her children) History of Recent Travel: No Home Medications - Allergies Allergies/Adverse Reactions: Allergies Allergy/AdvReac Type Severity Reaction Status Date / Time No Known Allergies Allergy Verified 08/30/19 12:21 - Home Medications Home Medications: Ambulatory Orders Nitrofurantoin Monohyd/M-Cryst [Macrobid -] 100 mg PO BID #14 capsule 08/30/19 Physical Exam - Maternity Vital Signs: Selected Entries 11/20/19 11/20/19 11/20/19 17:25 17:26 17:30 Temperature 98.6 F Pulse Rate 92 H 99 H 93 H Respiratory 20 Rate Blood Pressure 185/120 H 191/101 H 187/150 H Blood Pressure Mean Weight 192 lb 11/20/19 11/20/19 11/20/19 17:31 17:48 18:00 Temperature Pulse Rate 93 H 84 78 Respiratory Rate Blood Pressure 175/112 H 161/115 H Blood Pressure 128 128 124 Mean Weight 11/20/19 11/20/19 18:15 18:30 Temperature Pulse Rate 85 91 H Respiratory Rate Blood Pressure 167/119 H 133/97 Blood Pressure Mean Weight Constitutional: Yes: Severe Distress, Obese, Pallor Eyes: Yes: WNL HENT: Yes: Normocephalic, Nasal Congestion, Other (pt drowsy, incoherrent in speaking well oriented , answers the questions appropriately) Neck: Yes: WNL Cardiovascular: Yes: WNL Lungs: Clear to auscultation, Other (crepts) Breast(s): Yes: WNL (soft) - Abdominal Exam/OB Fundal Height: 38 Number of Fetuses: Single Presentation: Vertex Contractions: Yes Regularity: Irregular Intensity: Moderate Monitor Mode: External Heart Rate (range): 120 Heart Rate Location: [facility] Category: II Accelerations: Non-Uniform Decelerations: Variable - Vaginal Exam/OB Vaginal Bleediing: Bloody Show Speculum Exam: Yes Dilatation (cm): ft Effacement (%): 50 Amniotic Membrane Status: Ruptured Nitrazine Test: Positive Amniotic Fluid: Yes: Meconium Stained Meconium: Thick Presentation: Vertex/Position Station: -3 - Physical Exam Musculoskeletal: Yes: WNL Extremities: Yes: WNL. No: Calf Tenderness Edema: LLE: 2+, RLE: 2+ Integumentary: Yes: Incision (pfannensteil scar), Tattoos Deep Tendon Reflex Grade: Normal +2 ...Motor Strength: WNL Psychiatric: Yes: WNL, Alert, Oriented - Labs Lab Results: Selected Entries 11/20/19 11/20/19 11/20/19 17:48 18:00 18:15 Pulse Rate 84 78 85 Blood Pressure 175/112 H 161/115 H 167/119 H 11/20/19 18:30 Pulse Rate Blood Pressure 133/97 Laboratory Tests 12/26/16 12/26/16 12/26/16 15:00 15:00 15:00 WBC 9.4 Hgb 11.0 Hct 33.4 Plt Count 220 Neutrophils % 85.5 H Lymphocytes % 9.7 D Monocytes % 4.5 Eosinophils % 0.2 D Hypochromia Platelet Comment Polychromasia Poikilocytosis Anisocytosis Microcytosis Macrocytosis Ovalocytes Retic Count PT with INR INR 1.16 H PTT (Actin FS) 30.9 Sodium 136 Potassium 3.6 Chloride 104 Carbon Dioxide 23 BUN 4 L D Creatinine 0.5 L D Random Glucose 137 H D Calcium 8.5 Uric Acid GGT AST 8 L D ALT 14 Urine Protein Urine Ketones Urine Blood Urine Bilirubin Urine Urobilinogen Ur Leukocyte Esterase Urine WBC (Auto) U Random Total Protein Urine Creatinine Protein/Creatinin Ratio HIV 1&2 Antibody Screen HIV P24 Antigen 11/20/19 11/20/19 11/20/19 17:40 17:40 17:40 WBC 5.7 Hgb 9.7 L Hct 31.8 L Plt Count 302 Neutrophils % 70.5 D Lymphocytes % 19.9 D Monocytes % 7.9 Eosinophils % 0.7 D Hypochromia 2+ Platelet Comment Giant platelets Polychromasia 1+ Poikilocytosis 1+ Anisocytosis 2+ Microcytosis 2+ Macrocytosis 1+ Ovalocytes 1+ Retic Count 1.91 H PT with INR 10.60 INR 0.90 PTT (Actin FS) 27.4 Sodium 137 Potassium 4.3 Chloride 107 Carbon Dioxide 24 BUN 9.3 Creatinine 0.7 Random Glucose 91 Calcium Uric Acid 7.1 GGT 17 AST 28 ALT 23 Urine Protein Urine Ketones Urine Blood Urine Bilirubin Urine Urobilinogen Ur Leukocyte Esterase Urine WBC (Auto) U Random Total Protein Urine Creatinine Protein/Creatinin Ratio HIV 1&2 Antibody Screen HIV P24 Antigen 11/20/19 11/20/19 11/20/19 17:40 18:00 18:00 WBC Hgb Hct Plt Count Neutrophils % Lymphocytes % Monocytes % Eosinophils % Hypochromia Platelet Comment Polychromasia Poikilocytosis Anisocytosis Microcytosis Macrocytosis Ovalocytes Retic Count PT with INR INR PTT (Actin FS) Sodium Potassium Chloride Carbon Dioxide BUN Creatinine Random Glucose Calcium Uric Acid GGT AST ALT Urine Protein 3+ H Urine Ketones Trace H Urine Blood Negative Urine Bilirubin Negative Urine Urobilinogen 1.0 Ur Leukocyte Esterase Trace Urine WBC (Auto) 12 U Random Total Protein 275.0 H Urine Creatinine 123.0 Protein/Creatinin Ratio 2.2 HIV 1&2 Antibody Screen Negative HIV P24 Antigen Negative Hemorrhage Risk Assessment - Risk Factors Medium Risk Factors: Yes: Prior , uterine surgery,or multiple laparotomies Risk Score: 1 Risk Level: Medium Risk Problem List - Problems (1) with 39 completed weeks gestation Code(s): Z3A.39 - 39 WEEKS GESTATION OF (2) Meconium in amniotic fluid affecting management of mother Code(s): O36.8990 - MATERNAL CARE FOR OTH PROBLEMS, UNSP TRIMESTER, UNSP Qualifiers: Trimester: third trimester (3) Previous section Code(s): Z98.891 - HISTORY OF UTERINE SCAR FROM PREVIOUS SURGERY (4) Substance abuse affecting in third trimester, antepartum Code(s): O99.323 - DRUG USE COMPLICATING , THIRD TRIMESTER (5) Chronic hypertension affecting Code(s): O10.919 - UNSP PRE-EXISTING HTN COMP , UNSP TRIMESTER (6) Pre-eclampsia added to pre-existing hypertension Code(s): O11.9 - PRE-EXISTING HYPERTENSION WITH PRE-ECLAMPSIA, UNSP TRIMESTER (7) No care in current Code(s): O09.30 - SUPRVSN OF PREG W INSUFFICIENT ANTENAT CARE, UNSP TRIMESTER Assessment/Plan 34 yrs , 39.5/7 weeks, previousc/s x2 , meconium stained thick chr HTN, with possible superimpose preclempsia substance abuse heroin, cocaine , crack under influence non reassuring fhr Plan Repeat c/section after control of bP 5.23 PM Labetalol 40 mg ivpb stat 5.40 PM MgSo4 4gm ivpb stat 6.15 PM Labetalol 40 mg ivpb stat when BP down to 137/97 , labs available, pt was taken to OR
[2019-11-20] MEDS ORDERED: MAGNESIUM 4GM/H20 - 4 GM/100 ML IVPB IVPB SCH (17:45)
[2019-11-20] MEDS ORDERED: ELECTROLYTE-148 SOLN 1,000 ML IV SCH (18:00)
[2019-11-20] MEDS ORDERED: LABETALOL HCL 5 MG/1 ML (100MG/20 ML VIAL) IVPUSH ONE (18:07)
[2019-11-20 18:16] LABS: EOS % 0.7 % (0-4.5); HEMATOCRIT 31.8 % (32.4-45.2); HEMOGLOBIN 9.7 GM/dL (10.7-15.3); LYMPH % 19.9 % (8-40); MCHC 30.4 g/dl (32.0-36.0); MEAN CELL VOLUME 64.5 fl (80-96); MEAN PLT VOLUME 8.6 fl (7.5-11.1); MONO % 7.9 % (3.8-10.2); NEUT % 70.5 % (42.8-82.8); PLATELET COUNT 302 K/MM3 (134-434); RBC 4.93 M/mm3 (3.60-5.2); RDW 21.4 % (11.6-15.6); RETICULOCYTES 1.91 % (0.5-1.5); WHITE BLOOD COUNT 5.7 K/mm3 (4.0-10.0)
[2019-11-20 18:28] LABS: MCH 19.6 pg (25.7-33.7)
[2019-11-20 18:29] LABS: INR 0.9 (0.83-1.09); PROTHROMBIN TIME (PATIENT) 10.6 SEC (9.7-13.0)
[2019-11-20 18:31] LABS: ACTIVATED PTT 27.4 SECONDS (25.2-36.5)
[2019-11-20 18:37] LABS: ALBUMIN 2.3 g/dl (3.4-5.0); BILIRUBIN,TOTAL 0.2 mg/dL (0.2-1); BLOOD UREA NITROGEN 9.3 mg/dL (7-18); CALCIUM 8.3 mg/dL (8.5-10.1); CREATININE 0.7 mg/dL (0.55-1.3); POTASSIUM 4.3 mmol/L (3.5-5.1); TOT PROT 6.1 g/dl (6.4-8.2); URIC ACID 7.1 mg/dL (2.6-7.2)
[2019-11-20] MEDS ORDERED: morphine SULFATE/PF 0.5 MG/ML (2cc Syringe - QUVA) ONE (18:43)
[2019-11-20] MEDS ORDERED: PHENYLEPHRINE HCL 10 MG/1 ML SINGLE DOSE VIAL ONE (18:43)
[2019-11-20] MEDS ORDERED: ceFAZolin SODIUM 1 GM VIAL ONE ×2 (19:06)
[2019-11-20] MEDS ORDERED: ACETAMINOPHEN 325 MG TABLET (FP) PO PRN (19:08)
[2019-11-20 19:09] LABS: EPI CELLS 3.9 /HPF (0-5/HPF); HYALINE CASTS 8 /lpf (0-8); PH,URINE 6.5 (5.0-8.0); URINE APPEARANCE CLEAR; URINE BILIRUBIN NEGATIVE (NEGATIVE); URINE COLOR YELLOW; URINE GLUCOSE (UA) NEGATIVE (NEGATIVE); URINE KETONE TRACE (NEGATIVE); URINE LEUK ESTERASE TRACE (NEGATIVE); URINE NITRITE NEGATIVE (NEGATIVE); URINE PROTEIN 3+ (NEGATIVE); URINE RBC 2 /hpf (0-4); URINE WBC 12 /hpf (0-5)
[2019-11-20 19:17] LABS: ANISOCYTOSIS 2+; MACROCYTOSIS 1+; OVALOCYTE 1+; PLATELET ESTIMATE ADEQUATE
--- NOTE | 2019-11-20 19:42 | PN ---
Progress Note (short form) - Note Progress Note: I assisted Dr. Brown at repeat c/s for the entirety of the case.
[2019-11-20 19:56] LABS: METHADONE, UR NEGATIVE ng/ml (CUTOFF=300); PHENCYCLIDINE,URINE NEGATIVE ng/ml (CUTOFF=25); URINE AMPHETAMINES NEGATIVE ng/ml (CUTOFF=500); URINE BARBITURATES NEGATIVE ng/ml (CUTOFF=200); URINE BENZODIAZEPINES NEGATIVE ng/ml (CUTOFF=200)
[2019-11-20] MEDS: OXYTOCIN 20 UNITS in 0.9% NS 20 UNIT/1,000 ML INFUS.BAG IV SCH (20:00)
[2019-11-20 20:03] LABS: COCAINE, UR POSITIVE ng/ml (CUTOFF=300); OPIATES, URI POSITIVE ng/ml (CUTOFF=300)
[2019-11-20] MEDS ORDERED: METHYLERGONOVINE MALEATE 0.2 MG/1 ML AMP IM PRN (20:08)
[2019-11-20] MEDS ORDERED: SIMETHICONE 80 MG TAB.CHEW (FP) PO PRN (20:08)
[2019-11-20] MEDS ORDERED: SENNOSIDES/DOCUSATE COMBO (SENNA PLUS) TABLET (UD) PO PRN (20:08)
[2019-11-20] MEDS ORDERED: ACETAMINOPHEN 1000 MG/100 ML VIAL (NON FORMULARY) IVPB PRN (20:23)
[2019-11-20] MEDS ORDERED: OXYTOCIN 20 UNITS in 0.9% NS 20 UNIT/1,000 ML INFUS.BAG IV ONE (20:33)
--- NOTE | 2019-11-20 20:37 | OP ---
Operative Note - Note: Operative Date: 11/20/19 Pre-Operative Diagnosis: 39 weeks, previousc/sx2, thick meconium, non reassuring FHR , in labor , chr HTN with superimpose preclempsia substance abuse Operation: repeat LFTC/section Findings: 11/20/19 baby boy,immediate oral nasal suction was done 6/7 , wt 5'12" , , length 19", ROT , vx thick meconium both tubes & ovaries normal Dr Pennington , animal stunner present in the OR Surgeon: Angie Green Solar Energy System Installer Helper: Facundo Gomez Anesthesiologist/ELEMENTARY READING TUTOR: Len Barrera Anesthesia: Spinal Specimens Removed: cord segment for cord gas. cord blood. placenta Estimated Blood Loss (mls): 500 Drains, Volume Out (mls): 100 (foote urine yolanda color ) Fluid Volume Replaced (mls): 1,300 (Iv ancef 2 gm ivpb given ) Operative Report Dictated: Yes
--- NOTE | 2019-11-20 20:52 | PN ---
Delivery - Delivery Section: Repeat, Low Flap Transverse (indication, : 39 weeks, previous c/sx2,labor , thick meconium, non reassuring FHR, Substance abuse, Chr Htn with superimpose preclempsia) Type of Anesthesia: Spinal EBL (cc): 500 (urine output 100 ml yolanda color foote output) Delivery, Single - Stages of Labor Date 1st Stage Initiatied: 11/20/19 Time 1st Stage Initiated: 12:00 Date of Delivery: 11/20/19 Time of Delivery: 19:07 Date Placenta Delivered: 11/20/19 Time Placenta Delivered: :09 Placenta: Yes: Manual Removal, Uterine Exploration - Condition of Infant Green Belt/Assistant Import Manager Present: Yes Name: Mukul Pennington Gender: Male Weight: 5 lb 12 oz Position: OA Total Hours ROM (Hrs/Mins): 2hr,19min thick meconium - 1 Minute Total Score: 6 5 Minutes Total Score: 7 - Paden Feeding Plan Initial Plan: Elected not to breastfeed exclusively throughout hospitalization Remarks - Remarks Remarks: 34 yrs , 39 weeks , previousc/sx2, under influence of heroin, crack, cocaine , hypertension , preclempsia superimpose, anemia no care BP controlled with labetalol 40 mgi ivpb x 2 dose Mgso4 prophylaxis 4gm ivpb Intraop course uneventful Plan po Mgso4 to continue for 24 hrs po labetalol prn Dr Christensen consilt Psyche consult post op v/s 121/70, pulse 82, Temp 97.6 baby suspect meconium aspiration baby was transferred to [facility] NICU
[2019-11-20] MEDS ORDERED: MAGNESIUM SULFATE 20GM/500ML - 20 GM/500 ML INFUS.BAG IVPB SCH (21:00)
[2019-11-20] MEDS ORDERED: LABETALOL HCL 200 MG TABLET (FP) ONE (21:33)
[2019-11-20] MEDS: LABETALOL HCL 200 MG TABLET (FP) PO PRN (21:35)
[2019-11-20] MEDS ORDERED: PROMETHAZINE HCL 25 MG/1 ML VIAL ONE (22:09)
[2019-11-20] MEDS ORDERED: MEPERIDINE HCL 50 MG/ML VIAL ONE (22:09)
[2019-11-20] MEDS ORDERED: MEPERIDINE HCL 25 MG/ML VIAL IM ONE (22:14)
[2019-11-20] MEDS ORDERED: PROMETHAZINE HCL 25 MG/1 ML VIAL IM ONE (22:16)
[2019-11-20] MEDS ORDERED: MAGNESIUM SULFATE 20GM/500ML - 500 ML IVPB SCH (23:00)
[2019-11-20] MEDS: MAGNESIUM SULFATE 20GM/500ML - 20 GM/500 ML INFUS.BAG IVPB SCH (23:00)
[2019-11-21] MEDS: CEFAZOLIN 1 GM/D5W 1 GM/50 ML BAG IVPB SCH ×3 (02:00→18:10)
[2019-11-21] MEDS ORDERED: CEFAZOLIN 1 GM/D5W 1 GM/50 ML BAG ONE ×3 (02:19→18:07)
[2019-11-21] MEDS: LABETALOL HCL 200 MG TABLET (FP) PO PRN ×4 (03:00→18:10)
[2019-11-21] MEDS ORDERED: LABETALOL HCL 200 MG TABLET (FP) ONE ×5 (03:10→20:19)
[2019-11-21] MEDS ORDERED: OXYTOCIN 20 UNITS in 0.9% NS 20 UNIT/1,000 ML INFUS.BAG IV ONE (04:51)
[2019-11-21 06:51] LABS: BASO % 0.8 % (0-2.0); EOS % 0.3 % (0-4.5); HEMATOCRIT 29.7 % (32.4-45.2); HEMOGLOBIN 9.3 GM/dL (10.7-15.3); LYMPH % 12.6 % (8-40); MCHC 31.2 g/dl (32.0-36.0); MEAN CELL VOLUME 62.9 fl (80-96); MEAN PLT VOLUME 8.3 fl (7.5-11.1); MONO % 6.6 % (3.8-10.2); NEUT % 79.7 % (42.8-82.8); PLATELET COUNT 258 K/MM3 (134-434); RBC 4.72 M/mm3 (3.60-5.2); RDW 21.6 % (11.6-15.6); WHITE BLOOD COUNT 6.3 K/mm3 (4.0-10.0)
[2019-11-21 07:02] LABS: MCH 19.6 pg (25.7-33.7)
[2019-11-21] MEDS ORDERED: IBUPROFEN 600 MG TABLET (FP) PO ONE ×4 (07:18→20:17)
[2019-11-21] MEDS ORDERED: ACETAMINOPHEN 325 MG TABLET (FP) ONE ×4 (07:18→20:18)
[2019-11-21] MEDS: ACETAMINOPHEN 325 MG TABLET (FP) PO PRN ×4 (07:20→20:15)
[2019-11-21] MEDS: IBUPROFEN 600 MG TABLET (FP) PO PRN ×4 (07:20→20:15)
[2019-11-21] MEDS ORDERED: oxyCODONE HCL 5 MG TABLET PO PRN (08:00)
--- NOTE | 2019-11-21 08:03 | PN ---
Post Progress Note - Subjective Subjective: pt c/o pain she was given one dose of demerol 50 mg + phenrgan 25 mg im post op pt has been sleeping through out night Post Day: 1 Type of Delivery: Repeat C/S Vital Signs: Vital Signs Temperature 98.0 F 11/21/19 05:00 Pulse Rate 88 11/21/19 07:00 Respiratory Rate 17 11/21/19 07:00 Blood Pressure 143/96 11/21/19 07:00 O2 Sat by Pulse Oximetry (%) 100 11/20/19 20:45 Selected Entries 11/21/19 11/21/19 11/21/19 02:00 03:00 04:00 Blood Pressure 144/88 134/90 137/92 11/21/19 11/21/19 05:00 06:00 Blood Pressure 135/93 143/97 Breast Exam: Yes: Soft Uterus: Yes: Fundus Firm, Fundus @ umbilicus (tender) Incision: Yes: Dressing dry and intact. No: Oozing Abdomen/GI: Yes: Abdomen soft (bs active ), Tender, Tolerating PO (clear fluid) . No: Abdominal Distention, Passing flatus Lochia: Yes: Rubra Lochia, amount: Moderate Extremities: Yes: Calves non-tender, Edema (scd in situ ). No: Calf tenderness Perineum: Yes: Intact Activity: Other (pt not oob yet) - Labs Labs: CBC WBC 6.3 K/mm3 (4.0-10.0) 11/21/19 06:40 RBC 4.72 M/mm3 (3.60-5.2) 11/21/19 06:40 Hgb 9.3 GM/dL (10.7-15.3) L 11/21/19 06:40 Hct 29.7 % (32.4-45.2) L 11/21/19 06:40 MCV 62.9 fl (80-96) L 11/21/19 06:40 MCH 19.6 pg (25.7-33.7) L 11/21/19 06:40 MCHC 31.2 g/dl (32.0-36.0) L 11/21/19 06:40 RDW 21.6 % (11.6-15.6) H 11/21/19 06:40 Plt Count 258 K/MM3 (134-434) 11/21/19 06:40 MPV 8.3 fl (7.5-11.1) 11/21/19 06:40 Absolute Neuts (auto) 5.0 K/mm3 (1.5-8.0) 11/21/19 06:40 Neutrophils % 79.7 % (42.8-82.8) 11/21/19 06:40 Lymphocytes % 12.6 % (8-40) D 11/21/19 06:40 Monocytes % 6.6 % (3.8-10.2) 11/21/19 06:40 Eosinophils % 0.3 % (0-4.5) 11/21/19 06:40 Basophils % 0.8 % (0-2.0) 11/21/19 06:40 Nucleated RBC % 0 % (0-0) 11/21/19 06:40 Hypochromia 2+ 11/20/19 17:40 Platelet Estimate Adequate 11/20/19 17:40 Platelet Comment Giant platelets 11/20/19 17:40 Polychromasia 1+ 11/20/19 17:40 Poikilocytosis 1+ 11/20/19 17:40 Anisocytosis 2+ 11/20/19 17:40 Microcytosis 2+ 11/20/19 17:40 Macrocytosis 1+ 11/20/19 17:40 Ovalocytes 1+ 11/20/19 17:40 Retic Count 1.91 % (0.5-1.5) H 11/20/19 17:40 Other Findings, Remarks: i/o 1450/2400 ml rs cta Problem List - Problems (1) with 39 completed weeks gestation Code(s): Z3A.39 - 39 WEEKS GESTATION OF (2) Meconium in amniotic fluid affecting management of mother Code(s): O36.8990 - MATERNAL CARE FOR OTH PROBLEMS, UNSP TRIMESTER, UNSP Qualifiers: Trimester: third trimester (3) Previous section Code(s): Z98.891 - HISTORY OF UTERINE SCAR FROM PREVIOUS SURGERY (4) Substance abuse affecting in third trimester, antepartum Code(s): O99.323 - DRUG USE COMPLICATING , THIRD TRIMESTER (5) Chronic hypertension affecting Code(s): O10.919 - UNSP PRE-EXISTING HTN COMP , UNSP TRIMESTER (6) Pre-eclampsia added to pre-existing hypertension Code(s): O11.9 - PRE-EXISTING HYPERTENSION WITH PRE-ECLAMPSIA, UNSP TRIMESTER (7) No care in current Code(s): O09.30 - SUPRVSN OF PREG W INSUFFICIENT ANTENAT CARE, UNSP TRIMESTER (8) Delivery by emergency section Code(s): O82 - ENCOUNTER FOR DELIVERY WITHOUT INDICATION (9) examination following delivery Code(s): Z39.2 - ENCOUNTER FOR ROUTINE FOLLOW-UP Assessment/Plan stable plan ct IV MgSo4 until 9.00 PM -[address] po labetalol for BP control i/o chart
--- NOTE | 2019-11-21 08:22 | PN ---
Progress Note (short form) - Note Progress Note: Anesthesia/pain Pt seen and examined S:Alert and oriented, comfortable O: Vital Signs Temperature 98.0 F 11/21/19 05:00 Pulse Rate 88 11/21/19 07:00 Respiratory Rate 17 11/21/19 07:00 Blood Pressure 143/96 11/21/19 07:00 O2 Sat by Pulse Oximetry (%) 100 11/20/19 20:45 CBC, BMP 11/21/19 06:40 11/20/19 17:40 A/P: Current Active Problems Chronic hypertension affecting (Acute) Delivery by emergency section (Acute) Meconium in amniotic fluid affecting management of mother (Acute) No care in current (Acute) examination following delivery (Acute) Pre-eclampsia added to pre-existing hypertension (Acute) with 39 completed weeks gestation (Acute) Previous section (Acute) Substance abuse affecting in third trimester, antepartum (Acute) s/p c section Doing well post op Continue current care Len Barrera MD
[2019-11-21] MEDS: ENOXAPARIN NA (PORCINE) 40 MG/0.4 ML DISP.SYRIN SQ SCH (10:15)
--- NOTE | 2019-11-21 12:53 | OP ---
DATE OF OPERATION: 11/20/2019 PREOPERATIVE DIAGNOSIS: At 39 weeks 5 days gestation, previous section x2, thick meconium, non-reassuring heart, in labor, chronic hypertension with superimposed preeclampsia, and substance abuse. OPERATION: Repeat low-flap transverse section. SURGEON: Angie Green MD BRICK CARRIER SURGEON: Facundo Gomez MD ANESTHESIOLOGIST: Len Barrera MD ANESTHESIA: Spinal. SOW FARM TECHNICIAN: Mukul Pennington MD FINDINGS: This is a 34-year-old, 5, para 2-0-2-2, previous sections x2, brought by the ambulance with history of being under influence of drugs, heroin and crack cocaine use. On arrival, the patient's blood pressure was 185/120. Patient was incoherent. Cervix was fingertip and thick meconium was noted in the vagina. The heart initially showed bradycardia to 90 beats per minute and then with change of the position, it has recovered to 120 to 130 beats per minute. The high blood pressure was treated & stablized, before taking for c/section . First 40 mg of labetalol IV piggyback was given, followed by magnesium sulfate 4 g, again followed by labetalol 40 mg IV piggyback. Before being taken to the operating room, her blood pressure was 133 /97. The patient was taken to the OR. Plus she has anemia. Urine protein is 3+. PROCEDURE: The patient was taken to the operating room table and spinal anesthesia was given. She was placed in supine position. SCD stocking were in situ. Araujo catheter was in situ. Abdomen was painted and draped in the usual manner. Pfannenstiel incision was made through previous scar. The skin, subcutaneous tissue, anterior rectus sheath was incised transversely. Bleeding points were clamped and cauterized. Rectus muscle was from the rectus sheath. Parietal peritoneum was opened vertically. Lower flap parietal peritoneum was incised transversely and then the lower uterine segment was incised transversely. Amniotic fluid was thick meconium. The baby was delivered at 7:07 p.m. from ROT position. Immediate oral and nasal suction was given. Cord was clamped and the baby was handed over to the pompom maker. Baby's was 6 and 7, weight 5 pounds 12 ounces, length 19 inches. A cord segment was sent for cord blood gas and the cord blood was collected. Placenta was removed completely with the membrane. Uterine cavity was cleaned completely. Then the uterine incision was closed in 2 layers, first layer was closed with a continuous locking Biosyn 0 suture, second layer was closed as a continuous intermittent locking with a Biosyn 0 suture. Hemostasis was verified. Then interrupted sutures were taken in the bladder peritoneum with a Biosyn 0 suture. Both tubes and ovaries were inspected. They were normal. Irrigation was done. Sponge, instrument, needle count was correct. Closure of the abdomen was done. Parietal peritoneum was closed with a Vicryl 0 suture. Muscles were approximated together with Vicryl 0 interrupted sutures. Anterior rectus sheath was closed with Vicryl 0 continuous sutures. Hemostasis was checked underneath the anterior rectus sheath crease before closing it. Then subcutaneous tissue hemostasis was verified and some interrupted sutures were taken in subcutaneous tissue with Vicryl 0 suture, and skin was approximated with idalia. Pressure dressing was given and the blood clots and the meconium were removed from the vagina. Betadine wash was given. Intraoperative blood loss was 500 mL. Intraoperative urine output was 100 mL, yolanda color. She received 2 g of IV Ancef prior to the incision. She received a total of 1300 mL of crystalloid solution. She was transferred to the recovery room in stable condition. Flaquito [id number] MTDD
[2019-11-21] MEDS: MAGNESIUM SULFATE 20GM/500ML - 20 GM/500 ML INFUS.BAG IVPB SCH ×2 (15:20→23:37)
[2019-11-21] MEDS ORDERED: MAGNESIUM SULFATE 20GM/500ML - 20 GM/500 ML INFUS.BAG ONE (15:22)
--- NOTE | 2019-11-21 15:35 | CON.NEP ---
Consult Consult Specialty:: Nephrology Referred by:: dr laguerre Reason for Consultation:: hypertension, preeclampsia - History of Present Illness Chief Complaint: HTN, s/p c section , proteinuria History of Present Illness: 34 yo F s/p c section for HTN at end of her pregnency noted with proteinuria and now is on mag and labetolol with improved BP she was tested positive with opiates and cocaine - History Source History Provided By: Medical Record Limitations to Obtaining History: Clinical Condition - Past Medical History DATA TRANSCRIBER: Yes: Other (unabke to obtain) Cardio/Vascular: Yes: Other (not known) Pulmonary: Yes: Bronchitis Gastrointestinal: Yes: Other (? diarrhea) Hepatobiliary: Yes: Other (not known) Renal/: Yes: Other (not known) Infectious Disease: Yes: STD's (h/o chlamydia when 18 yrs old) Psych: Yes: Addictions (substance cocaine, heroin, crack), Other (unknown) Musculoskeletal: Yes: Other (unknown) Rheumatology: Yes: Other (unknown) Endocrine: Yes: Other (unknown) Dermatology: Yes: Other (unknown) - Past Surgical History Past Surgical History: Yes: (2009 & 2012) - Alcohol/Substance Use Hx Alcohol Use: No History of Substance Use: reports: Cocaine (also uses crack), Heroin (pt on Methadone program 150 mg po daily in 2017 pt states she inhales, she does not do IVDA) - Smoking History Smoking history: Unknown if ever smoked Have you smoked in the past 12 months: Yes Aproximately how many cigarettes per day: 8 - Social History History of Recent Travel: No Home Medications - Allergies Allergies/Adverse Reactions: Allergies Allergy/AdvReac Type Severity Reaction Status Date / Time No Known Allergies Allergy Verified 08/30/19 12:21 - Home Medications Home Medications: Ambulatory Orders Nitrofurantoin Monohyd/M-Cryst [Macrobid -] 100 mg PO BID #14 capsule 08/30/19 Nephrology Consult - Height Height: 5 ft 7 in - Weight Weight: 192 lb - BMI Body Mass Index (BMI): 30.0 - Lab Results CBC,BMP: CBC, BMP 11/21/19 06:40 11/20/19 17:40 Anion Gap: Anion Gap Anion Gap 6 MMOL/L (8-16) L 11/20/19 17:40 - Physical Examination Vital Signs: Vital Signs Temperature 98.4 F 11/21/19 12:00 Pulse Rate 83 11/21/19 14:00 Respiratory Rate 18 11/21/19 14:00 Blood Pressure 112/82 11/21/19 14:00 O2 Sat by Pulse Oximetry (%) 100 11/20/19 20:45 Constitutional: Yes: Well Nourished, No Distress, Calm Eyes: Yes: WNL, Conjunctiva Clear, EOM Intact HENT: Yes: WNL, Atraumatic, Normocephalic, Nasal Congestion Neck: Yes: WNL, Supple, Trachea Midline Cardiovascular: Yes: WNL, Regular Rate and Rhythm Respiratory: Yes: WNL, Regular, CTA Bilaterally Gastrointestinal: Yes: WNL, Normal Bowel Sounds Renal/: Yes: WNL Musculoskeletal: Yes: WNL Extremities: Yes: WNL Edema: No Peripheral Pulses WNL: Yes Integumentary: Yes: WNL Neurological: Yes: WNL, Oriented. No: Alert Psychiatric: Yes: Other (sleeping through the interview) Assessment/Plan Preeclampsia HTN - BPs better, on labetolol, still on Mag Proteinuria - already less pronounced substance abuse
[2019-11-21] MEDS: DEXTROSE 5%-LACTATED RINGERS 1,000 ML IV SCH (16:30)
[2019-11-21] MEDS ORDERED: BISACODYL 10 MG SUPP.RECT RC PRN (20:08)
[2019-11-21] MEDS: OXYTOCIN 20 UNITS in 0.9% NS 20 UNIT/1,000 ML INFUS.BAG IV SCH (23:37)
[2019-11-21] MEDS: FERROUS SO4 325 MG TABLET (FP) PO SCH (23:38)
[2019-11-22] MEDS: LABETALOL HCL 200 MG TABLET (FP) PO PRN ×2 (00:04→05:52)
[2019-11-22] MEDS: IBUPROFEN 600 MG TABLET (FP) PO PRN ×3 (00:04→09:11)
[2019-11-22] MEDS: ACETAMINOPHEN 325 MG TABLET (FP) PO PRN ×3 (00:05→09:13)
[2019-11-22] MEDS: FERROUS SO4 325 MG TABLET (FP) PO SCH ×2 (09:11→21:06)
[2019-11-22] MEDS: PRENATAL VITAMINS W/ FOLIC ACID TABLET (FP) PO SCH (09:11)
[2019-11-22] MEDS: ENOXAPARIN NA (PORCINE) 40 MG/0.4 ML DISP.SYRIN SQ SCH (09:13)
--- NOTE | 2019-11-22 10:45 | PN ---
Post Progress Note - Subjective Subjective: c/o pain scale 7/10 no headache she is requesting for withdrawal symptoms pt can be roused , replies to questions Post Day: 2 Type of Delivery: Repeat C/S Vital Signs: Vital Signs Temperature 97.4 F L 11/21/19 23:30 Pulse Rate 82 11/22/19 05:48 Respiratory Rate 18 11/21/19 23:30 Blood Pressure 137/67 11/22/19 05:48 O2 Sat by Pulse Oximetry (%) 100 11/20/19 20:45 Selected Entries 11/21/19 11/21/19 11/21/19 19:30 20:00 20:30 Temperature Pulse Rate Blood Pressure 148/97 144/87 133/90 11/21/19 11/21/19 21:00 23:30 Temperature 97.4 F L Pulse Rate 79 Blood Pressure 148/99 138/90 Breast Exam: Yes: Soft. No: Engorged Uterus: Yes: Fundus Firm, Fundus below umbilicus, Non-tender Incision: Yes: Fontana intact. No: Redness, Oozing Abdomen/GI: Yes: Abdomen soft (bs active ), Tender, Passing flatus, Tolerating PO (diet ). No: Abdominal Distention Lochia: Yes: Rubra Lochia, amount: Moderate Extremities: Yes: Calves non-tender Perineum: Yes: Intact Activity: Other (mostly sleeping all the time .) - Labs Labs: CBC WBC 6.3 K/mm3 (4.0-10.0) 11/21/19 06:40 RBC 4.72 M/mm3 (3.60-5.2) 11/21/19 06:40 Hgb 9.3 GM/dL (10.7-15.3) L 11/21/19 06:40 Hct 29.7 % (32.4-45.2) L 11/21/19 06:40 MCV 62.9 fl (80-96) L 11/21/19 06:40 MCH 19.6 pg (25.7-33.7) L 11/21/19 06:40 MCHC 31.2 g/dl (32.0-36.0) L 11/21/19 06:40 RDW 21.6 % (11.6-15.6) H 11/21/19 06:40 Plt Count 258 K/MM3 (134-434) 11/21/19 06:40 MPV 8.3 fl (7.5-11.1) 11/21/19 06:40 Absolute Neuts (auto) 5.0 K/mm3 (1.5-8.0) 11/21/19 06:40 Neutrophils % 79.7 % (42.8-82.8) 11/21/19 06:40 Lymphocytes % 12.6 % (8-40) D 11/21/19 06:40 Monocytes % 6.6 % (3.8-10.2) 11/21/19 06:40 Eosinophils % 0.3 % (0-4.5) 11/21/19 06:40 Basophils % 0.8 % (0-2.0) 11/21/19 06:40 Nucleated RBC % 0 % (0-0) 11/21/19 06:40 Hypochromia 2+ 11/20/19 17:40 Platelet Estimate Adequate 11/20/19 17:40 Platelet Comment Giant platelets 11/20/19 17:40 Polychromasia 1+ 11/20/19 17:40 Poikilocytosis 1+ 11/20/19 17:40 Anisocytosis 2+ 11/20/19 17:40 Microcytosis 2+ 11/20/19 17:40 Macrocytosis 1+ 11/20/19 17:40 Ovalocytes 1+ 11/20/19 17:40 Retic Count 1.91 % (0.5-1.5) H 11/20/19 17:40 Other Findings, Remarks: RS , shallow breaths Problem List - Problems (1) with 39 completed weeks gestation Code(s): Z3A.39 - 39 WEEKS GESTATION OF (2) Meconium in amniotic fluid affecting management of mother Code(s): O36.8990 - MATERNAL CARE FOR OTH PROBLEMS, UNSP TRIMESTER, UNSP Qualifiers: Trimester: third trimester (3) Previous section Code(s): Z98.891 - HISTORY OF UTERINE SCAR FROM PREVIOUS SURGERY (4) Substance abuse affecting in third trimester, antepartum Code(s): O99.323 - DRUG USE COMPLICATING , THIRD TRIMESTER (5) Chronic hypertension affecting Code(s): O10.919 - UNSP PRE-EXISTING HTN COMP , UNSP TRIMESTER (6) Pre-eclampsia added to pre-existing hypertension Code(s): O11.9 - PRE-EXISTING HYPERTENSION WITH PRE-ECLAMPSIA, UNSP TRIMESTER (7) No care in current Code(s): O09.30 - SUPRVSN OF PREG W INSUFFICIENT ANTENAT CARE, UNSP TRIMESTER (8) Delivery by emergency section Code(s): O82 - ENCOUNTER FOR DELIVERY WITHOUT INDICATION (9) examination following delivery Code(s): Z39.2 - ENCOUNTER FOR ROUTINE FOLLOW-UP Assessment/Plan stable BP still some elevated readings , rx PO Labetalol 200 mg q6 h prn ( she has been getting q6h ) completed MgSo4 for 24 hrs Psyche consult is pending
[2019-11-22] MEDS ORDERED: LABETALOL HCL 200 MG TABLET (FP) PO PRN (10:55)
[2019-11-22] MEDS: NIFEdipine E.R. 30 MG TABLET PO SCH (12:15)
[2019-11-22] MEDS ORDERED: hydrALAZINE HCL 25 MG TABLET (FP) PO PRN (13:43)
--- NOTE | 2019-11-22 13:48 | PN ---
Progress Note (short form) - Note Progress Note: Renal follow up for hypertension Seen and examined at the bedside awake and alert reports that she is going through withdrawal denies any chest pain, shortness of breath but does have a headache Vital Signs Temperature 98.0 F 11/22/19 11:00 Pulse Rate 92 H 11/22/19 11:00 Respiratory Rate 18 11/22/19 11:00 Blood Pressure 147/97 11/22/19 11:00 O2 Sat by Pulse Oximetry (%) 100 11/20/19 20:45 Intake & Output 11/19/19 11/20/19 11/21/19 11/22/19 23:59 23:59 23:59 23:59 Intake Total 1950 3775 700 Output Total 900 4000 850 Balance 1050 -225 -150 Weight 87.09 kg 87.09 kg NAD awake and alert neck supple no LE edema CBC, BMP 11/21/19 06:40 11/20/19 17:40 Current Medications Acetaminophen (Tylenol -) 650 mg PO Q4H PRN PRN Reason: PAIN LEVEL 1-5 Last Admin: 11/22/19 09:13 Dose: 650 mg Bisacodyl (Dulcolax Suppository -) 10 mg RC PRN PRN PRN Reason: CONSTIPATION Enoxaparin Sodium (Lovenox -) 40 mg SQ DAILY [facility] Last Admin: 11/22/19 09:13 Dose: Not Given Ferrous Sulfate (Feosol -) 325 mg PO BID [facility] Last Admin: 11/22/19 09:11 Dose: 325 mg Hydralazine HCl (Apresoline -) 25 mg PO TID PRN PRN Reason: HYPERTENSION Dextrose/Lactated Ringer's (D5-Lr -) 1,000 mls @ 125 mls/hr IV ASDIR [facility] Last Admin: 11/21/19 16:30 Dose: 125 mls/hr Ibuprofen (Motrin -) 600 mg PO Q4H PRN PRN Reason: PAIN LEVEL 1-5 Last Admin: 11/22/19 09:11 Dose: 600 mg Methylergonovine Maleate (Methergine Injection -) 0.2 mg IM Q4H PRN PRN Reason: Excessive Bleeding (L&D) Nifedipine (Procardia Xl -) 30 mg PO DAILY [facility] Last Admin: 11/22/19 12:15 Dose: 30 mg Oxycodone HCl (Roxicodone -) 5 mg PO Q4H PRN PRN Reason: PAIN LEVEL 6-10 Multivit/Folic Acid/Iron ( Vitamins (Sjr) -) 1 tab PO DAILY [facility] Last Admin: 11/22/19 09:11 Dose: 1 tab Senna/Docusate Sodium (Pericolace -) 2 tablet PO HS PRN PRN Reason: CONSTIPATION Simethicone (Mylicon -) 80 mg PO Q4H PRN PRN Reason: GAS 34 year old woman presented in labor s/p with hypertension 1. hypertension secondary to preeclamspia 2. Heroin/Cocaine abuse 3. s/p delivery Change antihypertensives to Nifedpine 30mg Daily and hydralazine 25mg Q8h PRN Will try to avoid beta hemalatha use given recent cocaine/heroin use Consider Detox evaluation Ob follow up Low sodium diet Thank you Trent Christensen DO
--- NOTE | 2019-11-22 18:07 | CON.PSY ---
Psychiatry Consult Chief Complaint: patient seen for Psych consult, History of Subnstance abuse. - Previous Psychiatric Treatment Outpatient: None Inpatient: None - Previous Substance Abuse Treatment Outpatient: More than 6 mos ago Inpatient: 2 or more prior admissions - Reason for Previous Treatment Reason for Previous Treatment: Cocaine, Heroin or Other Narcotics - Current Medications Current Medications: Active Medications Acetaminophen (Tylenol -) 650 mg PO Q4H PRN PRN Reason: PAIN LEVEL 1-5 Last Admin: 11/22/19 09:13 Dose: 650 mg Bisacodyl (Dulcolax Suppository -) 10 mg RC PRN PRN PRN Reason: CONSTIPATION Enoxaparin Sodium (Lovenox -) 40 mg SQ DAILY [facility] Last Admin: 11/22/19 09:13 Dose: Not Given Ferrous Sulfate (Feosol -) 325 mg PO BID [facility] Last Admin: 11/22/19 09:11 Dose: 325 mg Hydralazine HCl (Apresoline -) 25 mg PO TID PRN PRN Reason: HYPERTENSION Dextrose/Lactated Ringer's (D5-Lr -) 1,000 mls @ 125 mls/hr IV ASDIR [facility] Last Admin: 11/21/19 16:30 Dose: 125 mls/hr Ibuprofen (Motrin -) 600 mg PO Q4H PRN PRN Reason: PAIN LEVEL 1-5 Last Admin: 11/22/19 09:11 Dose: 600 mg Methylergonovine Maleate (Methergine Injection -) 0.2 mg IM Q4H PRN PRN Reason: Excessive Bleeding (L&D) Nifedipine (Procardia Xl -) 30 mg PO DAILY [facility] Last Admin: 11/22/19 12:15 Dose: 30 mg Oxycodone HCl (Roxicodone -) 5 mg PO Q4H PRN PRN Reason: PAIN LEVEL 6-10 Last Admin: 11/22/19 16:01 Dose: 5 mg Multivit/Folic Acid/Iron ( Vitamins (Sjr) -) 1 tab PO DAILY [facility] Last Admin: 11/22/19 09:11 Dose: 1 tab Senna/Docusate Sodium (Pericolace -) 2 tablet PO HS PRN PRN Reason: CONSTIPATION Simethicone (Mylicon -) 80 mg PO Q4H PRN PRN Reason: GAS - Allergies Allergies: Allergies Allergy/AdvReac Type Severity Reaction Status Date / Time No Known Allergies Allergy Verified 08/30/19 12:21 - Current Living Status Usual Living Arrangement: Alone - Current Mental Status Evaluation Appearance: Disheveled Attitude: Guarded - Affect Affect: Constrictive Appropriateness: Appropriate to Content - Mood Mood: Anxious - Speech/Language Expressive: Coherent - Psychomotor Activity Psychomotor Activity: Hyperactive - Thought Process Thought Process: Intact - Thought Content Hallucinations: Absent Delusions: Absent - Self Perception Self Perception: No Impairment - Cognition Attention: Alert Orientation: Time Memory, Immediate Recall: Intact Memory, Short Term: 3/3 Memory, Remote with Promptin/3 - Concentration Serial Sevens Intact: No Simple Calculations Intact: Yes - Abstraction Proverb Interpretation: Intact Judgement: Moderately Impaired - Insight Insight: Impaired - Impulse Control Impulse Control: Good Control - Suicidal Ideation Suicidal Ideation: No - Homicidal Ideation Homicidal Ideation: No Assessment/Plan 1) Need to call Substance abuse MD for [place]dr[place] management, might need Methadone.
[2019-11-22] MEDS ORDERED: KETOROLAC TROMETHAMINE 30 MG/1 ML VIAL IVPUSH PRN ×2 (19:03→19:05)
--- NOTE | 2019-11-22 19:10 | PN ---
Progress Note (short form) - Note Progress Note: Patient evaluated and not in acute distress. She reports incisional and back pain. vitals: as reported. A/P: POD # 1 in stable condition, pain control issues and no opioids until this afternoon. Suboxone initiated and detox consultation ordered. Oxycodone and toradol ordered for pain control.
[2019-11-22] MEDS ORDERED: BUPRENORPHINE/NALOXONE 2 MG/0.5 MG FILM PACKET SL SCH (19:15)
[2019-11-22] MEDS: DEXTROSE 5%-LACTATED RINGERS 1,000 ML IV SCH (20:10)
[2019-11-22] MEDS: KETOROLAC TROMETHAMINE 10 MG TABLET PO SCH ×2 (20:16→23:37)
[2019-11-22] MEDS: BUPRENORPHINE/NALOXONE 2 MG/0.5 MG FILM PACKET SL SCH (20:16)
--- NOTE | 2019-11-22 21:39 | PN ---
S Progress Note Note: pt referred for consultation . Pt found asleep in room , awakens to verbal stimuli and declines to provide further information at this time. Will re-consult in a.m.
[2019-11-23] MEDS: KETOROLAC TROMETHAMINE 10 MG TABLET PO SCH ×3 (05:54→17:07)
--- NOTE | 2019-11-23 08:27 | PN ---
Post Progress Note - Subjective Subjective: Patient reports pain control is improved, no nausea, vomiting, no chills, lochia decreased, ambulating, Post Day: 2 Type of Delivery: Repeat C/S Vital Signs: Vital Signs Temperature 99.9 F H 11/22/19 21:31 Pulse Rate 98 H 11/23/19 06:00 Respiratory Rate 18 11/23/19 06:00 Blood Pressure 132/85 11/23/19 06:00 O2 Sat by Pulse Oximetry (%) 100 11/20/19 20:45 Breast Exam: Yes: Other (deferred) Uterus: Yes: Fundus Firm Incision: Yes: Oskar intact Abdomen/GI: Yes: Abdomen soft Lochia, amount: Small Extremities: Yes: Calves non-tender Perineum: Yes: Intact Activity: Ambulating - Labs Labs: CBC WBC 6.3 K/mm3 (4.0-10.0) 11/21/19 06:40 RBC 4.72 M/mm3 (3.60-5.2) 11/21/19 06:40 Hgb 9.3 GM/dL (10.7-15.3) L 11/21/19 06:40 Hct 29.7 % (32.4-45.2) L 11/21/19 06:40 MCV 62.9 fl (80-96) L 11/21/19 06:40 MCH 19.6 pg (25.7-33.7) L 11/21/19 06:40 MCHC 31.2 g/dl (32.0-36.0) L 11/21/19 06:40 RDW 21.6 % (11.6-15.6) H 11/21/19 06:40 Plt Count 258 K/MM3 (134-434) 11/21/19 06:40 MPV 8.3 fl (7.5-11.1) 11/21/19 06:40 Absolute Neuts (auto) 5.0 K/mm3 (1.5-8.0) 11/21/19 06:40 Neutrophils % 79.7 % (42.8-82.8) 11/21/19 06:40 Lymphocytes % 12.6 % (8-40) D 11/21/19 06:40 Monocytes % 6.6 % (3.8-10.2) 11/21/19 06:40 Eosinophils % 0.3 % (0-4.5) 11/21/19 06:40 Basophils % 0.8 % (0-2.0) 11/21/19 06:40 Nucleated RBC % 0 % (0-0) 11/21/19 06:40 Hypochromia 2+ 18 17:40 Platelet Estimate Adequate 18 17:40 Platelet Comment Giant platelets 11/20/19 17:40 Polychromasia 1+ 11/20/19 17:40 Poikilocytosis 1+ 11/20/19 17:40 Anisocytosis 2+ 11/20/19 17:40 Microcytosis 2+ 11/20/19 17:40 Macrocytosis 1+ 11/20/19 17:40 Ovalocytes 1+ 11/20/19 17:40 Retic Count 1.91 % (0.5-1.5) H 18 17:40 Haptoglobin 190 mg/dL (33-278) 11/20/19 17:40 Assessment/Plan POD # 1 in stable condition, S/P emergent CD and baby transferred to [facility]. Opioid and cocaine abuse and suboxone initiated yesterday. Patient declined to speak to behavioral services last night and Dr Cartagena to re-evaluate today. BP well controlled on antihypertensive regimen -Continue PP/post-op care -Continue Current medication regiment -F/U Dr Cartagena consult and consideration for inpatient detox -Anticipate D/C on POD # 4
[2019-11-23] MEDS: NIFEdipine E.R. 30 MG TABLET PO SCH (09:10)
[2019-11-23] MEDS: FERROUS SO4 325 MG TABLET (FP) PO SCH ×2 (09:15→22:06)
[2019-11-23] MEDS: ENOXAPARIN NA (PORCINE) 40 MG/0.4 ML DISP.SYRIN SQ SCH (09:15)
[2019-11-23] MEDS: PRENATAL VITAMINS W/ FOLIC ACID TABLET (FP) PO SCH (09:15)
[2019-11-23] MEDS: BUPRENORPHINE/NALOXONE 2 MG/0.5 MG FILM PACKET SL SCH (09:16)
[2019-11-23 11:52] LABS: BASO % 0.3 % (0-2.0); EOS % 0.9 % (0-4.5); HEMATOCRIT 28.7 % (32.4-45.2); HEMOGLOBIN 8.9 GM/dL (10.7-15.3); LYMPH % 9.8 % (8-40); MEAN CELL VOLUME 63.3 fl (80-96); MEAN PLT VOLUME 8.1 fl (7.5-11.1); MONO % 6.3 % (3.8-10.2); NEUT % 82.7 % (42.8-82.8); PLATELET COUNT 286 K/MM3 (134-434); RBC 4.53 M/mm3 (3.60-5.2); RDW 21.3 % (11.6-15.6); WHITE BLOOD COUNT 8.8 K/mm3 (4.0-10.0)
[2019-11-23 11:57] LABS: MCH 19.6 pg (25.7-33.7)
--- NOTE | 2019-11-23 14:53 | PN ---
Progress Note (short form) - Note Progress Note: Renal follow up for hypertension Seen and examined at the bedside awake and alert has no acute complaints no OLSEN, chest pain BP well controlled Vital Signs Temperature 98.5 F 11/23/19 13:31 Pulse Rate 94 H 11/23/19 13:31 Respiratory Rate 20 11/23/19 13:31 Blood Pressure 137/80 11/23/19 13:31 O2 Sat by Pulse Oximetry (%) 100 11/20/19 20:45 Intake & Output 11/20/19 11/21/19 11/22/19 11/23/19 23:59 23:59 23:59 23:59 Intake Total 1950 3775 700 Output Total 900 4000 850 Balance 1050 -225 -150 Weight 87.09 kg 87.09 kg NAD awake and alert neck supple no LE edema CBC, BMP 11/23/19 11:00 11/20/19 17:40 Current Medications Acetaminophen (Tylenol -) 650 mg PO Q4H PRN PRN Reason: PAIN LEVEL 1-5 Last Admin: 11/22/19 09:13 Dose: 650 mg Bisacodyl (Dulcolax Suppository -) 10 mg RC PRN PRN PRN Reason: CONSTIPATION Buprenorphine/Naloxone (Suboxone 2 Mg/0.5 Mg Film Packet) 2 each SL DAILY [facility] Last Admin: 11/23/19 09:16 Dose: 2 each Enoxaparin Sodium (Lovenox -) 40 mg SQ DAILY [facility] Last Admin: 11/23/19 09:15 Dose: Not Given Ferrous Sulfate (Feosol -) 325 mg PO BID [facility] Last Admin: 11/23/19 09:15 Dose: 325 mg Hydralazine HCl (Apresoline -) 25 mg PO TID PRN PRN Reason: HYPERTENSION Ketorolac Tromethamine (Toradol) 10 mg PO Q6HPO [facility] Stop: 11/25/19 19:40 Last Admin: 11/23/19 12:23 Dose: 10 mg Methylergonovine Maleate (Methergine Injection -) 0.2 mg IM Q4H PRN PRN Reason: Excessive Bleeding (L&D) Nifedipine (Procardia Xl -) 30 mg PO DAILY [facility] Last Admin: 11/23/19 09:10 Dose: 30 mg Oxycodone HCl (Roxicodone -) 5 mg PO Q4H PRN PRN Reason: PAIN LEVEL 6-10 Last Admin: 11/22/19 16:01 Dose: 5 mg Multivit/Folic Acid/Iron ( Vitamins (Sjr) -) 1 tab PO DAILY [facility] Last Admin: 11/23/19 09:15 Dose: 1 tab Senna/Docusate Sodium (Pericolace -) 2 tablet PO HS PRN PRN Reason: CONSTIPATION Last Admin: 11/22/19 20:16 Dose: 2 tablet Simethicone (Mylicon -) 80 mg PO Q4H PRN PRN Reason: GAS 34 year old woman presented in labor s/p with hypertension 1. hypertension secondary to preeclamspia 2. Heroin/Cocaine abuse 3. s/p delivery Blood pressure well controlled on Nifedpine ER 30mg daily, continue for now Will try to avoid beta hemalatha use given recent cocaine/heroin use follow up Detox evaluation Ob follow up Low sodium diet Thank you Trent Christensen DO
--- NOTE | 2019-11-23 15:08 | CONSULT ---
Consult Detox [facility] Reason for Current Admission/Consult: Patient just delivered baby but has opioid dependence. Referred by:: eladia - History History of Present Illness: 34 year old female with opioid dependence with withdrawals. She admits to using one bundle of heroin intranasally for 2 years. She has attempted detox in the past 6 months ago at another insitution without success. She denies other substances of use. She is willing to enter rehabilitation as she has minimal withdrawal symptoms but was started on suboxone 8 mg total in one day yesterday and seems very comfortable now. - History Source History Provided By: Patient Limitations to Obtaining History: No Limitations - Alcohol/Substance Use Hx Alcohol Use: No Hx Substance Use: Yes (heroin) Hx Substance Use Treatment: Yes (prior detox in past) - Current Drug/Alcohol Use Heroin Route: Inhalation Frequency: Daily Amount used: 1 bundle Age of first use: 32 Date of Last Use: 11/19/19 - Past Medical History [facility]: Yes: Other (unabke to obtain) Cardio/Vascular: Yes: Other (not known) Pulmonary: Yes: Bronchitis Gastrointestinal: Yes: Other (? diarrhea) Hepatobiliary: Yes: Other (not known) Renal/: Yes: Other (not known) Infectious Disease: Yes: STD's (h/o chlamydia when 18 yrs old) Psych: Yes: Addictions (substance cocaine, heroin, crack), Other (unknown) Musculoskeletal: Yes: Other (unknown) Rheumatology: Yes: Other Endocrine: Yes: Other (unknown) Dermatology: Yes: Other (unknown) - Past Surgical History Past Surgical History: Yes: (2009 & 2012) - Significant Medical Findings: Patient seen at the bedside easily arousable but sleepy. has no acute complaints no OLSEN, chest pain BP well controlled Vital Signs Temperature 98.5 F 11/23/19 13:31 Pulse Rate 94 H 11/23/19 13:31 Respiratory Rate 20 11/23/19 13:31 Blood Pressure 137/80 11/23/19 13:31 O2 Sat by Pulse Oximetry (%) 100 11/20/19 20:45 Intake & Output 11/20/19 11/21/19 11/22/19 11/23/19 23:59 23:59 23:59 23:59 Intake Total 1950 3775 700 Output Total 900 4000 850 Balance 1050 -225 -150 Weight 87.09 kg 87.09 kg COWS - Scale Resting Pulse: 0= [place] 80 or Below Sweatin= No chills or Flushing Restless Observation: 0= Sits Still Pupil Size: 0= Normal to Room Light Bone or Joint Aches: 0= None Runny Nose/ Eye Tearin= None GI Upset > 30mins: 0= None Tremor Observation: 0= None Yawning Observation: 0= None Anxiety or Irritability: 0= None COWS Score: 0 Assessment Plan - Diagnosis (1) Opioid dependence in early, early partial, sustained full, or sustained partial remission Status: Acute - Plan Plan: 1. Opioid Dependence : Patient is amenable to enter rehab and if she does so she can have suboxone continued at 8 mg SL daily while in rehab She is not appropriate at this time for detox as she is not in withdrawals and is already post-. If she wishes, she can also be referred to an outpatient MAT, [facility], that will maintain her on suboxone as she attends counseling and groups to prevent relapse. If she chooses rehab, then she can have more formal planning and discharge options like group attendance to better deal with the urges to use, parenting skills, relapse prevention and many other skill sets that she can utilize to prevent recividism. Dr. Narayan - Medication Detox Regimen/Protocol: Suboxone
[2019-11-23] MEDS ORDERED: BUPRENORPHINE/NALOXONE 2 MG/0.5 MG FILM PACKET SL ONE ×2 (22:00)
[2019-11-24] MEDS: KETOROLAC TROMETHAMINE 10 MG TABLET PO SCH ×3 (00:27→11:39)
[2019-11-24 06:16] VITALS: TEMP 98.1
--- NOTE | 2019-11-24 08:28 | DS ---
Physical Exam-TERRAZZO MECHANIC HELPER Vital Signs: Vital Signs Temperature 98.1 F 11/24/19 06:00 Pulse Rate 79 11/24/19 06:00 Respiratory Rate 20 11/24/19 06:00 Blood Pressure 140/104 H 11/24/19 06:00 O2 Sat by Pulse Oximetry (%) 100 11/20/19 20:45 Selected Entries 11/23/19 11/23/19 11/23/19 13:31 17:58 21:07 Blood Pressure 137/80 135/86 136/85 11/24/19 02:00 Blood Pressure 142/87 Selected Entries 11/24/19 09:56 Temperature 98.1 F Pulse Rate 75 Blood Pressure 143/87 Constitutional: Yes: Anxious, Pallor, Other (pain scale 7/10) Eyes: Yes: WNL HENT: Yes: WNL, Normocephalic Neck: Yes: WNL Cardiovascular: Yes: WNL, Other (HTN with superimpose preclempsia) Respiratory: Yes: WNL Gastrointestinal: Yes: WNL, Normal Bowel Sounds, Other (bm done) ...Rectal Exam: Yes: Deferred Renal/: Yes: WNL, Other (voiding without difficulty). No: CVA Tenderness - Left, CVA Tenderness - Right ....Post : Yes: Uterus firm, Moderate lochia rubra ( perineum intact) Breast(s): Yes: WNL (soft, not engorged) Musculoskeletal: Yes: WNL Extremities: Yes: WNL. No: Calf Tenderness Edema: LLE: Trace, RLE: Trace Wound/Incision: Yes: Clean/Dry, Well Approximated, Steri Strips, Open to air, [place] Removed. No: Draining, Reddened, Bleeding, Excoriated Neurological: Yes: WNL, Alert, Oriented ...Motor Strength: WNL Psychiatric: Yes: WNL, Alert, Oriented, Other (pt sad, quiet & silently weeping) Labs: CBC, BMP 11/23/19 11:00 11/20/19 17:40 Delivery - Delivery Section: Repeat, Low Flap Transverse (indication, : 39 weeks, previous c/sx2,labor , thick meconium, non reassuring FHR, Substance abuse, Chr Htn with superimpose preclempsia) Type of Anesthesia: Spinal Episiotomy/Laceration: None EBL (cc): 500 (urine output 100 ml yolanda color foote output) Delivery, Single - Stages of Labor Date 1st Stage Initiatied: 11/20/19 Time 1st Stage Initiated: 12:00 Date of Delivery: 11/20/19 Time of Delivery: 19:07 Time Placenta Delivered: 19:09 Placenta: Yes: Manual Removal, Uterine Exploration - Condition of Infant Mud Jack Nozzleman/Front End Ui Developer Present: Yes Name: Mukul Pennington Gender: Male Weight: 5 lb 12 oz Position: OA Total Hours ROM (Hrs/Mins): 2hr,19min thick meconium - 1 Minute Total Score: 6 5 Minutes Total Score: 7 - [place] Feeding Plan Initial Plan: Elected not to breastfeed exclusively throughout hospitalization Remarks - Remarks Remarks: 34 yrs , 39 weeks , previousc/sx2, under influence of heroin, crack, cocaine , hypertension , preclempsia superimpose, anemia no care BP controlled with labetalol 40 mgi ivpb x 2 dose Mgso4 prophylaxis 4gm ivpb Intraop course uneventful Plan po Mgso4 to continue for 24 hrs po labetalol prn Dr Fermin parada Psyche consult post op v/s 121/70, pulse 82, Temp 97.6 baby suspect meconium aspiration baby was transferred to [facility] NICU post op pt was seen by [employer] Program Specialist , BP control procardia 30 XL given with Hydralzine 25 mg prn consult with psychiatrist Dr Murrieta done consult with Detox MD, Dr Sylvain Bland done RX Suboxone ( 2mg/0.5mg ) po given for withdrawal symptoms continuing care trying to arrange transfer to Detox cr at [address] [place] [address] as inpatient or outpatient pain meds changed to toradol po anemia counselled BP management counselled Detox , counselled discharge pending arrangement for Detox program 12.00 noon detox inpatient bed available at [address] [place] [address] she was transferred by nick meyers[ot given to nurse by rn Note pathology report : placenta ac chorioamninitis , meconium transfer to Rehab Inpatient Program Discharge Summary Problems reviewed: Yes Reason For Visit: C SECTION Current Active Problems Chronic hypertension affecting (Acute) Delivery by emergency section (Acute) Meconium in amniotic fluid affecting management of mother (Acute) No care in current (Acute) Opioid dependence in early, early partial, sustained full, or sustained partial remission (Acute) examination following delivery (Acute) Pre-eclampsia added to pre-existing hypertension (Acute) with 39 completed weeks gestation (Acute) Previous section (Acute) Substance abuse affecting in third trimester, antepartum (Acute) Procedures: Principal: repeat c/s Other Procedures: consult Dr Christensen , hypertension management. consult psychiatrist Dr Murrieta. consult Dr Sylvain Bland for detox Hospital Course: post op management withdrawal symptoms management hypertension management Health Concerns: opiates dependent anemia hypertension Plan of Treatment: as directed transfer to detox unit ct antihypertensives as per dr Christensen procardia 30 XL Condition: Stable - Instructions Diet, Activity, Other Instructions: Post Instructions DIET: Continue good diet high in protein, calcium, and iron rich foods. Drink at least eight (8) glasses of water daily in addition to other fluids. ___ Regular diet MEDICATIONS: Continue vitamins and iron as previously directed. Motrin and Tylenol may be taken for minor discomfort. ACTIVITY: Mild to moderate exercise may be started in two (2) weeks. Take frequent rest periods. Resume normal activity after six (6) week check up. WOUND CARE OF OPERATIVE SITE: Continue use of perineal bottle until vaginal discharge stops. Keep area clean. Shower daily. Keep abdominal wound dry. Report any drainage or redness to physician. Tub baths, tampons and douches are not permitted for [address] Bottle feeding BREAST CARE: (For those that are not breast feeding): If engorgement occurs: Wear tight fitting bra. Take Tylenol or Motrin for pain. Apply cold packs (ice in bags to each breast ) FAMILY PLANNING: There are many control alternatives to pursue and they should be discussed at your first office visit. You may resume sexual activity after your six (6) week check up. (Remember, breast feeding is not a contraceptive) NEXT PHYSICIAN APPOINTMENT: Be certain to call for a one (1) week appointment, unless otherwise directed. rtc 1 weeks for wound check Call Clinic or got to Emergency Dept if you have any of the following: Heavy vaginal bleeding Painful urination Leg pain Unusual odor noted to vaginal bleeding High fever Red streaking noted on breast Referrals: Angie Green MD [Staff Physician] - Disposition: TRANSFER ACUTE CARE/OTHER HOSP - Home Medications Comprehensive Discharge Medication List: Ambulatory Orders Acetaminophen [Tylenol .Regular Strength -] 500 mg PO Q4H PRN #30 tablet Ferrous Sulfate [Feosol] 325 mg PO BID 90 Days #60 tab 11/22/19 Ibuprofen [Motrin -] 600 mg PO Q4H PRN #30 tablet 11/22/19 Vitamins (Sjr) - 1 tab PO DAILY #30 tablet 11/22/19 Prescription Drug Monitoring Program (I-STOP) results: I-STOP reviewed and issues identified
[2019-11-24 09:59] VITALS: BP 143/87; PULSE 75
[2019-11-24] MEDS: PRENATAL VITAMINS W/ FOLIC ACID TABLET (FP) PO SCH (10:20)
[2019-11-24] MEDS: FERROUS SO4 325 MG TABLET (FP) PO SCH (10:20)
[2019-11-24] MEDS: ENOXAPARIN NA (PORCINE) 40 MG/0.4 ML DISP.SYRIN SQ SCH (10:21)
[2019-11-24] MEDS: BUPRENORPHINE/NALOXONE 2 MG/0.5 MG FILM PACKET SL SCH (10:22)
[2019-11-24] MEDS: NIFEdipine E.R. 30 MG TABLET PO SCH (10:28)
--- NOTE | 2019-11-24 14:23 | PATH ---
Surgical Pathology Report Patient Name: VAIBHAV BOWEN Med. Rec. #: [id number] /Age/Gender: 1985 (Age: 34) / F Account: [id number] Location: [facility] OBS/MEDICAL STENOGRAPHER Taken: 11/20/2019 Received: 11/22/2019 Reported: 11/24/2019 Physicians: Angie Green M.D. Specimen(s) Received PLACENTA Clinical History term 1 at 23 weeks, 1 spontaneous , 1-induced Final Diagnosis PLACENTA, SECTION: 592 G THIRD TRIMESTER PLACENTA WITH TRIVASCULAR UMBILICAL CORD, MEMBRANES WITH MILD ACUTE CHORIOAMNIONITIS, AND MECONIUM-LADEN MACROPHAGES. Electronically Signed Cydney Duenas M.D. Gross Description The specimen is received fresh labeled placenta and is a 592 gram, 18.5 x 15.5 x 3.0 cm. placenta with attached membranes and umbilical cord. The attached membranes are gibson green, meconium stained, translucent with focal opacities and insert marginally. The umbilical cord measures 14 cm. in length and averages 1.4 cm. in diameter. The cord inserts eccentrically, 5.5 cm. to the nearest margin. No true knots or strictures are identified. Cut surface of the umbilical cord reveals 3 vessels. The surface is gong green, meconium stained with moderate fibrin deposition and appropriate caliber vessel. The maternal surface is red-brown with focal defects. Sectioning reveals red-brown, spongy parenchyma. No lesions are identified. Crown Presser sections are submitted in three cassettes as follows: 1- membrane rolls and umbilical cord; 2-3- full thickness sections of placenta. /11/23/2019 [facility]/11/23/2019
== END 2019-11-24 12:45 | disposition other institution (70) | DRG 540 ==
LOC: JLDR 17:05 → J3W 11-21 23:23
PROVIDERS: ADMIT Obstetrics & Gynecology; ATTEND Obstetrics & Gynecology
PROC: 10D00Z1 Extraction of Products of Conception, Low, Open Approach (ICD-10-PCS; principal; 2019-11-20)
DX: O34.211 Maternal care for low transverse scar from previous cesarean delivery (principal); O99.324 Drug use complicating childbirth; F11.20 Opioid dependence, uncomplicated; O77.0 Labor and delivery complicated by meconium in amniotic fluid; O76 Abnormality in fetal heart rate and rhythm complicating labor and delivery; O11.4 Pre-existing hypertension with pre-eclampsia, complicating childbirth; F14.10 Cocaine abuse, uncomplicated; O99.02 Anemia complicating childbirth; D64.9 Anemia, unspecified; Z3A.39 39 weeks gestation of pregnancy; Z37.0 Single live birth
CPT/HCPCS: 36415; 36600; 80053; 80307; 81003; 82570; 82803; 82977; 83010; 83735; 84156; 84550; 85025; 85044; 85610; 85730; 86593; 86762; 86850; 86900; 86901; 87340; 87389; 88307-TC; J0131; J2175

== ENCOUNTER 2019-11-24 13:56 | Inpatient (IN) | payer OTHER ==
--- NOTE | 2019-11-24 14:54 | HP ---
COWS - Scale Resting Pulse: 0= [place] 80 or Below CIWA Score - Admission Criteria [facility] Guidelines: Admission for Medically Managed Detox: Requires at least one of the followin. CIWA greater than 12 2. Seizures within the past 24 hours 3. Delirium tremens within the past 24 hours 4. Hallucinations within the past 24 hours 5. Acute intervention needed for co occurring medical disorder 6. Acute intervention needed for co occurring psychiatric disorder 7. Severe withdrawal that cannot be handled at a lower level of care (continued vomiting, continued diarrhea, abnormal vital signs) requiring intravenous medication and/or fluids 8. Admitting History and Physical - Admission History of Present Illness: 34 year old female with history of opioid dependence who is post- after delivery of baby and is here for continuation of rehab. She was started on suboxone while in the [facility] and detox was consulted on her today. She received total of 6 mg of suboxone yesterday while in [facility]. She was transferred here from [facility] to enter rehab and maintain until she can be discharged to a suboxone program. She uses 2 bundles of heroin intravenously daily, she gave high risk She now wants to be abstinent for her child. History Source: Patient Limitations to Obtaining History: No Limitations - Past Medical History SKULL SPLITTER: Yes: Other (unabke to obtain) Cardiovascular: Yes: HTN, Other (not known) Pulmonary: Yes: Bronchitis Gastrointestinal: Yes: Other (? diarrhea) Hepatobiliary: Yes: Other (not known) Renal/: Yes: Other (not known) Heme/Onc: Yes: Anemia (iron deff anemia) Infectious Disease: Yes: STD's (h/o chlamydia when 18 yrs old) Psych: Yes: Addictions (substance cocaine, heroin, crack), Other (unknown) Musculoskeletal: Yes: Other (unknown) Rheumatology: Yes: Other Endocrine: Yes: Other (unknown) Dermatology: Yes: Other (unknown) - Past Surgical History Past Surgical History: Yes: (2009 & 2012) - Smoking History Smoking history: Current every day smoker Have you smoked in the past 12 months: Yes Aproximately how many cigarettes per day: 8 - Alcohol/Substance Use Hx Alcohol Use: No History of Substance Use: reports: Cocaine (also uses crack), Heroin (pt on Methadone program 150 mg po daily in 2017 pt states she inhales, she does not do IVDA) - Social History Usual Living Arrangement: Yes: With Spouse Do you think of yourself as: Straight/Heterosexual ADL: Independent Occupation: unemployed History of Recent Travel: No Admission ROS S - HPI Allergies/Adverse Reactions: Allergies Allergy/AdvReac Type Severity Reaction Status Date / Time No Known Allergies Allergy Verified 11/24/19 14:49 Exam Limitations: No Limitations - Ebola screening Have you traveled outside of the country in the last 21 days: No Have you had contact with anyone from an Ebola affected area: No Have you been sick,other than usual withdrawal symptoms: No Do you have a fever: No - Review of Systems Constitutional: No Symptoms Reported EENT: reports: No Symptoms Reported Respiratory: reports: No Symptoms reported Cardiac: reports: No Symptoms Reported GI: reports: No Symptoms Reported : reports: No Symptoms Reported Musculoskeletal: reports: No Symptoms Reported Integumentary: reports: No Symptoms Reported Neuro: reports: No Symptoms reported Endocrine: reports: No Symptoms Reported Hematology: reports: No Symptoms Reported Psychiatric: reports: No Sypmtoms Reported, Judgement Intact, Mood/Affect Appropiate, Orientated x3 Other Systems: Reviewed and Negative Patient History - Patient Medical History Hx Asthma: No Hx Chronic Obstructive Pulmonary Disease (COPD): No Hx Cancer: No Hx Cardiac Disorders: No Hx Hypertension: Yes Hx Seizures: No Hx Diabetes: No Hx Renal Disease (ESRD): No Hx Thyroid Disease: No Hx Human Immunodeficiency Virus (HIV): No Hx Depression: No - Patient Surgical History Hx Section: Yes - PPD History Previous Implant?: No Documented Results: Negative w/o proof Implanted On Prior [facility] Admission?: No PPD to be Administered?: Yes - Smoking Cessation Smoking history: Unknown if ever smoked Have you smoked in the past 12 months: Yes Aproximately how many cigarettes per day: 8 Hx Chewing Tobacco Use: No Initiated information on smoking cessation: Yes 'Breaking Loose' booklet given: 11/24/19 - Substances abused Heroin Substance route: Injection Frequency: Daily Amount used: 2 bundles Age of first use: 32 Date of last use: 11/24/19 Admission Physical Exam [facility] - Physical General Appearance: Yes: No Apparent Distress HEENTM: Yes: EOMI, Hearing grossly Normal, Normal ENT Inspection, Normocephalic , Normal Voice, HUGH, Pharynx Normal, Tm's normal Respiratory: Yes: Chest Non-Tender, Lungs Clear, Normal Breath Sounds, No Respiratory Distress, No Accessory Muscle Use Neck: Yes: No masses,lesions,Nodules, Supple, Trachea in good position Breast: Yes: Breast Exam Deferred Cardiology: Yes: Regular Rhythm, Regular Rate, S1, S2 Abdominal: Yes: Normal Bowel Sounds, Non Tender, Flat, Soft Genitourinary: Yes: Within Normal Limits Back: Yes: Normal Inspection Musculoskeletal: Yes: full range of Motion, Gait Steady, Pelvis Stable Extremities: Yes: Normal Capillary Refill, Normal Inspection, Normal Range of Motion, Non-Tender Neurological: Yes: project hire II-XII NML intact, Fully Oriented, Alert, Motor Strength 5/5, Normal Mood/Affect, Normal Response Integumentary: Yes: Normal Color, Warm Lymphatic: Yes: Within Normal Limits - Diagnostic (1) Opioid dependence Current Visit: Yes Status: Acute (2) section Current Visit: Yes Status: Active (3) Chronic hypertension affecting Current Visit: Yes Status: Acute (4) Delivery by emergency section Current Visit: Yes Status: Acute Inpatient Rehab Admission - Rehab Decision to Admit Inpatient rehab admission?: Yes - Initial Determination Are CD services needed?: Yes Free of communicable disease: Yes Not in need of hospitalization: Yes - Rehab Admission Criteria Previous failed treatment: Yes Poor recovery environment: Yes Comorbidities: Yes Lacks judgement: Yes Patient is meeting Inpatient Rehab admission criteria:: Yes
[2019-11-24 14:56] VITALS: BMI 27.8
[2019-11-24] MEDS ORDERED: MENTHOL/PHENOL 1 EACH UD MM PRN (14:59)
[2019-11-24] MEDS ORDERED: MAGNESIUM CITRATE 300 ML BOTTLE PO PRN (14:59)
[2019-11-24] MEDS ORDERED: MAG HYDROX/AL HYDROX/SIMETH 30 ML UNIT-DOSE CUP PO PRN (14:59)
[2019-11-24] MEDS ORDERED: guaiFENesin 200 MG/10 ML 10 ML UNIT-DOSE CUPS PO PRN (14:59)
[2019-11-24] MEDS ORDERED: LOPERAMIDE HCL 2 MG CAPSULE PO PRN (14:59)
[2019-11-24] MEDS ORDERED: P-EPHED 60MG/TRIPROLIDI 2.5MG TABLET PO PRN (14:59)
[2019-11-24] MEDS ORDERED: BUPRENORPHINE/NALOXONE 8 MG/2 MG FILM PACKET SL SCH (15:15)
[2019-11-24] MEDS ORDERED: BUPRENORPHINE/NALOXONE 4 MG/1 MG FILM PACKET SL ONE (16:30)
[2019-11-24] MEDS: FERROUS SO4 325 MG TABLET (FP) PO SCH (17:52)
[2019-11-24] MEDS: NICOTINE 7 MG/24 HOURS TOPICAL PATCH TD SCH (17:52)
[2019-11-24] MEDS: THIAMINE HCL 100 MG TABLET (FP) PO SCH (21:38)
[2019-11-24] MEDS: MELATONIN 5 MG TABLETS PO PRN (21:38)
[2019-11-24] MEDS: IBUPROFEN 400 MG TABLET (FP) PO PRN (21:39)
[2019-11-25] MEDS: FERROUS SO4 325 MG TABLET (FP) PO SCH ×2 (07:37→16:50)
--- NOTE | 2019-11-25 09:42 | PN ---
[facility] Progress Note Note: Patient admitted to [facility] for rehab. PMHx of opioid and cocaine use, delivered child on 11/20/2019. Now on suboxone at 8 mg daily, will be referred for continued suboxone MAT upon discharge. Labs (whatever was available), notes, problem list reviewed. Admission labs pending. Vital Signs Period Temp Pulse Resp BP Sys/Price Pulse Ox Last 24 Hr 97 F-98.0 F 76-93 18-20 129-143/80-90 P/E: general: no apparent distress HEENTM: normocephalic neck; supple MSK: full weight bearing, steady gait A/P: substance use disorder- continue rehab, maintain safety.
[2019-11-25] MEDS: PRENATAL VITAMINS W/ FOLIC ACID TABLET (FP) PO SCH (09:50)
[2019-11-25] MEDS: NICOTINE 7 MG/24 HOURS TOPICAL PATCH TD SCH (09:50)
[2019-11-25] MEDS: IBUPROFEN 400 MG TABLET (FP) PO PRN ×2 (09:51→16:50)
[2019-11-25] MEDS: BUPRENORPHINE/NALOXONE 8 MG/2 MG FILM PACKET SL SCH (09:51)
[2019-11-25 12:17] LABS: HEMOGLOBIN 9.4 GM/dL (10.7-15.3); MCHC 30.5 g/dl (32.0-36.0); MEAN CELL VOLUME 64.1 fl (80-96); MEAN PLT VOLUME 8.3 fl (7.5-11.1); PLATELET COUNT 324 K/MM3 (134-434); RBC 4.83 M/mm3 (3.60-5.2); RDW 22.3 % (11.6-15.6)
[2019-11-25 12:27] LABS: MCH 19.5 pg (25.7-33.7)
[2019-11-25 12:48] LABS: ALBUMIN 2.1 g/dl (3.4-5.0); BILIRUBIN,TOTAL 0.1 mg/dL (0.2-1); CALCIUM 8.5 mg/dL (8.5-10.1); CREATININE 0.8 mg/dL (0.55-1.3); POTASSIUM 4.4 mmol/L (3.5-5.1); TOT PROT 5.9 g/dl (6.4-8.2)
[2019-11-25] MEDS: BACITRACIN 15 GM TUBE TOPICAL OINTMENT TP SCH ×2 (13:27→21:37)
[2019-11-25 15:18] LABS: EPI CELLS 4.4 /HPF (0-5/HPF); HYALINE CASTS 17 /lpf (0-8); URINE APPEARANCE CLOUDY; URINE BACTERIA 120.8 /hpf (NEGATIVE); URINE BILIRUBIN NEGATIVE (NEGATIVE); URINE COLOR YELLOW; URINE GLUCOSE (UA) NEGATIVE (NEGATIVE); URINE KETONE NEGATIVE (NEGATIVE); URINE LEUK ESTERASE 2+ (NEGATIVE); URINE NITRITE NEGATIVE (NEGATIVE); URINE PROTEIN 1+ (NEGATIVE); URINE RBC 52 /hpf (0-4); URINE UROBILINOGEN 0.2 mg/dL (0.2-1.0); URINE WBC 75 /hpf (0-5)
[2019-11-25] MEDS: MELATONIN 5 MG TABLETS PO PRN (21:35)
[2019-11-25] MEDS: THIAMINE HCL 100 MG TABLET (FP) PO SCH (21:35)
[2019-11-25] MEDS: ACETAMINOPHEN 325 MG TABLET (FP) PO PRN (21:36)
[2019-11-26] MEDS: BACITRACIN 15 GM TUBE TOPICAL OINTMENT TP SCH ×3 (07:04→21:24)
[2019-11-26] MEDS: FERROUS SO4 325 MG TABLET (FP) PO SCH ×2 (07:04→21:23)
[2019-11-26] MEDS: NICOTINE 7 MG/24 HOURS TOPICAL PATCH TD SCH (09:46)
[2019-11-26] MEDS: PRENATAL VITAMINS W/ FOLIC ACID TABLET (FP) PO SCH (09:46)
[2019-11-26] MEDS: BUPRENORPHINE/NALOXONE 8 MG/2 MG FILM PACKET SL SCH (09:46)
[2019-11-26] MEDS: IBUPROFEN 400 MG TABLET (FP) PO PRN ×2 (09:47→20:42)
--- NOTE | 2019-11-26 12:37 | PN ---
[facility] Progress Note Note: PATIENT SEEN FOR FOLLOW UP LABS. SHE IS 6 DAYS POST VIA AND ADMITTED TO REHAB FOR OPIOD DEPENDENCE. SHE IS MANDATED BY CPS. PATIENT EVALUATED AT BEDSIDE WITH JOSE MCGILL PRESENT. PATIENT DENIES FEVER , CHILLS AND DISCHARGE/BLEEDING FROM SURGICAL SITE. PATIENT STATES SHE HAS MILD TENDERNESS TO RIGHT OUTER SURGICAL SITE AREA. Laboratory Tests 11/24/19 11/25/19 11/25/19 15:35 08:00 08:00 WBC 7.0 RBC 4.83 Hgb 9.4 L Hct 31.0 L MCV 64.1 L MCH 19.5 L MCHC 30.5 L RDW 22.3 H Plt Count 324 MPV 8.3 Sodium 141 Potassium 4.4 Chloride 110 H Carbon Dioxide 21 Anion Gap 10 BUN 19.0 H Creatinine 0.8 Est GFR (CKD-EPI)AfAm 113.06 Est GFR (CKD-EPI)NonAf 97.55 Random Glucose 135 H Calcium 8.5 Total Bilirubin 0.1 L AST 15 ALT 21 Alkaline Phosphatase 108 Total Protein 5.9 L Albumin 2.1 L Urine Color Urine Appearance Urine pH Ur Specific [place] Urine Protein Urine Glucose (UA) Urine Ketones Urine Blood Urine Nitrite Urine Bilirubin Urine Urobilinogen Ur Leukocyte Esterase Urine WBC (Auto) Urine RBC (Auto) Urine Casts (Auto) U Epithel Cells (Auto) Urine Bacteria (Auto) POC Urine HCG, Qual Positive RPR Titer 11/25/19 11/25/19 08:00 11:50 WBC RBC Hgb Hct MCV MCH MCHC RDW Plt Count MPV Sodium Potassium Chloride Carbon Dioxide Anion Gap BUN Creatinine Est GFR (CKD-EPI)AfAm Est GFR (CKD-EPI)NonAf Random Glucose Calcium Total Bilirubin AST ALT Alkaline Phosphatase Total Protein Albumin Urine Color Yellow Urine Appearance Cloudy Urine pH 6.0 Ur Specific [place] 1.024 Urine Protein 1+ H Urine Glucose (UA) Negative Urine Ketones Negative Urine Blood 3+ H Urine Nitrite Negative Urine Bilirubin Negative Urine Urobilinogen 0.2 Ur Leukocyte Esterase 2+ H Urine WBC (Auto) 75 Urine RBC (Auto) 52 Urine Casts (Auto) 17 U Epithel Cells (Auto) 4.4 Urine Bacteria (Auto) 120.8 POC Urine HCG, Qual RPR Titer Nonreactive Vital Signs (72 hours) 11/24/19 11/24/19 11/25/19 14:51 17:56 00:30 Temperature 97.6 F 97 F L Pulse Rate 81 76 Respiratory 20 18 18 Rate Blood Pressure 129/80 141/90 11/25/19 11/26/19 11/26/19 06:52 00:30 03:30 Temperature 98.0 F Pulse Rate 93 H Respiratory 18 18 18 Rate Blood Pressure 143/83 11/26/19 07:08 Temperature 98.6 F Pulse Rate 92 H Respiratory 18 Rate Blood Pressure 138/87 PE ALERT AND ORIENTED X 3 SKIN WARM AND DRY +PERRLA, EOMS INTACT BL GI SOFT, NO DISTENTION, NT SURGICAL SITE INTACT MILD IRRITATION TO RIGHT OUTER INCISION LINE (PATIENT NOTED TOUCHING AREA WITH HANDS) NO INFLAMMATION/SWELLING, BLEEDING OR DISCHARGE NOTED A/P: OPIOD DEPENDENCE ANEMIA S/P CONTINUE REHAB SERVICES AND TREATMENT ORDERED ON FE SUPPLEMENT, REPEAT CBC 11/29/2019 BACITRACIN DRESSING TID ORDERED CONTINUE TO MONITOR CLINICALLY
[2019-11-26] MEDS: MELATONIN 5 MG TABLETS PO PRN (21:23)
[2019-11-26] MEDS: THIAMINE HCL 100 MG TABLET (FP) PO SCH (21:23)
[2019-11-27] MEDS ORDERED: PT OWN MED DRAWER 7, Y5N ONE ×2 (06:39→19:03)
[2019-11-27] MEDS: BACITRACIN 15 GM TUBE TOPICAL OINTMENT TP SCH ×3 (06:54→21:52)
[2019-11-27] MEDS: IBUPROFEN 400 MG TABLET (FP) PO PRN ×2 (07:56→19:11)
[2019-11-27] MEDS: FERROUS SO4 325 MG TABLET (FP) PO SCH ×2 (07:56→18:04)
[2019-11-27] MEDS: NICOTINE 7 MG/24 HOURS TOPICAL PATCH TD SCH (09:17)
[2019-11-27] MEDS: BUPRENORPHINE/NALOXONE 8 MG/2 MG FILM PACKET SL SCH (09:17)
[2019-11-27] MEDS: PRENATAL VITAMINS W/ FOLIC ACID TABLET (FP) PO SCH (09:17)
[2019-11-27] MEDS: ACETAMINOPHEN 325 MG TABLET (FP) PO PRN ×2 (13:12→21:53)
[2019-11-27 18:23] LABS: BASO % 1.5 % (0-2.0); HEMATOCRIT 31.7 % (32.4-45.2); HEMOGLOBIN 9.5 GM/dL (10.7-15.3); LYMPH % 22.3 % (8-40); MCHC 29.9 g/dl (32.0-36.0); MEAN CELL VOLUME 65.3 fl (80-96); MEAN PLT VOLUME 8.6 fl (7.5-11.1); MONO % 9.5 % (3.8-10.2); NEUT % 64.7 % (42.8-82.8); PLATELET COUNT 307 K/MM3 (134-434); RBC 4.85 M/mm3 (3.60-5.2); RDW 22.3 % (11.6-15.6); WHITE BLOOD COUNT 6.5 K/mm3 (4.0-10.0)
[2019-11-27 18:26] LABS: MCH 19.5 pg (25.7-33.7)
[2019-11-27 19:16] LABS: ANISOCYTOSIS 2+; PLATELET ESTIMATE ADEQUATE
[2019-11-27] MEDS: MELATONIN 5 MG TABLETS PO PRN (21:52)
[2019-11-27] MEDS: THIAMINE HCL 100 MG TABLET (FP) PO SCH (21:53)
[2019-11-28] MEDS: BACITRACIN 15 GM TUBE TOPICAL OINTMENT TP SCH ×3 (06:48→22:08)
[2019-11-28] MEDS: FERROUS SO4 325 MG TABLET (FP) PO SCH ×2 (07:59→17:13)
[2019-11-28] MEDS: IBUPROFEN 400 MG TABLET (FP) PO PRN ×2 (07:59→17:14)
[2019-11-28] MEDS: NICOTINE 7 MG/24 HOURS TOPICAL PATCH TD SCH (09:23)
[2019-11-28] MEDS: PRENATAL VITAMINS W/ FOLIC ACID TABLET (FP) PO SCH (09:23)
[2019-11-28] MEDS: BUPRENORPHINE/NALOXONE 8 MG/2 MG FILM PACKET SL SCH (09:24)
[2019-11-28] MEDS: MAGNESIUM HYDROX 2400MG/30ML ORAL SUSPENSION 30 ML CUP PO PRN (09:29)
[2019-11-28] MEDS: MELATONIN 5 MG TABLETS PO PRN (22:06)
[2019-11-28] MEDS: THIAMINE HCL 100 MG TABLET (FP) PO SCH (22:07)
[2019-11-28] MEDS: ACETAMINOPHEN 325 MG TABLET (FP) PO PRN (22:07)
[2019-11-28] MEDS ORDERED: PT OWN MED DRAWER 7, Y5N ONE ×2 (22:17→23:42)
[2019-11-29] MEDS: BACITRACIN 15 GM TUBE TOPICAL OINTMENT TP SCH ×3 (07:46→21:28)
[2019-11-29] MEDS ORDERED: PT OWN MED DRAWER 7, Y5N ONE ×2 (07:46→15:53)
[2019-11-29] MEDS: FERROUS SO4 325 MG TABLET (FP) PO SCH ×2 (07:46→17:40)
[2019-11-29] MEDS: IBUPROFEN 400 MG TABLET (FP) PO PRN ×2 (07:47→21:31)
[2019-11-29] MEDS: PRENATAL VITAMINS W/ FOLIC ACID TABLET (FP) PO SCH (09:40)
[2019-11-29] MEDS: BUPRENORPHINE/NALOXONE 8 MG/2 MG FILM PACKET SL SCH (09:41)
[2019-11-29] MEDS: NICOTINE 7 MG/24 HOURS TOPICAL PATCH TD SCH (09:41)
[2019-11-29] MEDS: ACETAMINOPHEN 325 MG TABLET (FP) PO PRN (09:43)
--- NOTE | 2019-11-29 13:34 | PN ---
[facility] Progress Note Note: PATIENT SEEN FOR FOLLOW UP LABS AND EVALUATION OF SITE. Laboratory Tests 11/24/19 11/25/19 11/25/19 15:35 08:00 08:00 WBC 7.0 RBC 4.83 Hgb 9.4 L Hct 31.0 L MCV 64.1 L MCH 19.5 L MCHC 30.5 L RDW 22.3 H Plt Count 324 MPV 8.3 Absolute Neuts (auto) Neutrophils % Neutrophils % (Manual) Band Neutrophils % Lymphocytes % Lymphocytes % (Manual) Monocytes % Monocytes % (Manual) Eosinophils % Eosinophils % (Manual) Basophils % Basophils % (Manual) Myelocytes % (Man) Nucleated RBC % Metamyelocytes Hypochromia Platelet Estimate Poikilocytosis Anisocytosis Sodium 141 Potassium 4.4 Chloride 110 H Carbon Dioxide 21 Anion Gap 10 BUN 19.0 H Creatinine 0.8 Est GFR (CKD-EPI)AfAm 113.06 Est GFR (CKD-EPI)NonAf 97.55 Random Glucose 135 H Calcium 8.5 Total Bilirubin 0.1 L AST 15 ALT 21 Alkaline Phosphatase 108 Total Protein 5.9 L Albumin 2.1 L Urine Color Urine Appearance Urine pH Ur Specific [place] Urine Protein Urine Glucose (UA) Urine Ketones Urine Blood Urine Nitrite Urine Bilirubin Urine Urobilinogen Ur Leukocyte Esterase Urine WBC (Auto) Urine RBC (Auto) Urine Casts (Auto) U Epithel Cells (Auto) Urine Bacteria (Auto) POC Urine HCG, Qual Positive RPR Titer 11/25/19 11/25/19 11/27/19 08:00 11:50 10:10 WBC 6.5 RBC 4.85 Hgb 9.5 L Hct 31.7 L MCV 65.3 L MCH 19.5 L MCHC 29.9 L RDW 22.3 H Plt Count 307 MPV 8.6 Absolute Neuts (auto) 4.2 Neutrophils % 64.7 D Neutrophils % (Manual) 67.0 Band Neutrophils % 1.0 Lymphocytes % 22.3 D Lymphocytes % (Manual) 22.0 Monocytes % 9.5 Monocytes % (Manual) 5 Eosinophils % 2.0 D Eosinophils % (Manual) 1.0 Basophils % 1.5 D Basophils % (Manual) 0.0 Myelocytes % (Man) 1 Nucleated RBC % 0 Metamyelocytes 1 Hypochromia 2+ Platelet Estimate Adequate Poikilocytosis 1+ Anisocytosis 2+ Sodium Potassium Chloride Carbon Dioxide Anion Gap BUN Creatinine Est GFR (CKD-EPI)AfAm Est GFR (CKD-EPI)NonAf Random Glucose Calcium Total Bilirubin AST ALT Alkaline Phosphatase Total Protein Albumin Urine Color Yellow Urine Appearance Cloudy Urine pH 6.0 Ur Specific [place] 1.024 Urine Protein 1+ H Urine Glucose (UA) Negative Urine Ketones Negative Urine Blood 3+ H Urine Nitrite Negative Urine Bilirubin Negative Urine Urobilinogen 0.2 Ur Leukocyte Esterase 2+ H Urine WBC (Auto) 75 Urine RBC (Auto) 52 Urine Casts (Auto) 17 U Epithel Cells (Auto) 4.4 Urine Bacteria (Auto) 120.8 POC Urine HCG, Qual RPR Titer Nonreactive Vital Signs Temperature 97.7 F 11/29/19 07:52 Pulse Rate 65 11/29/19 07:52 Respiratory Rate 18 11/29/19 07:52 Blood Pressure 130/88 11/29/19 07:52 O2 Sat by Pulse Oximetry (%) ROS: DENIES SURGICAL SITE PAIN, REDNESS, SWELLING AND FEVER PE: ALERT AND ORIENTED X 3 SKIN WARM AND DRY +EOMS INTACT BL GI SOFT, NT SURGICAL SITE HEALING WELL, INTACT, NO DISCHARGE/REDNESS NOTED EXT FULL ROM, AMB AD MISAEL A/P: S/P ANEMIA CONTINUE FESO4 ORDERED BACITRACIN DRESSING ORDERED ADD ENSURE 120CC PO BID TO DIET ORDER CONTINUE TO MONITOR CLINICALLY
[2019-11-29] MEDS: THIAMINE HCL 100 MG TABLET (FP) PO SCH (21:28)
[2019-11-29] MEDS: MELATONIN 5 MG TABLETS PO PRN (21:28)
[2019-11-29] MEDS: MAGNESIUM HYDROX 2400MG/30ML ORAL SUSPENSION 30 ML CUP PO PRN (21:31)
[2019-11-30] MEDS: BACITRACIN 15 GM TUBE TOPICAL OINTMENT TP SCH ×3 (06:33→21:42)
[2019-11-30] MEDS: FERROUS SO4 325 MG TABLET (FP) PO SCH ×2 (08:45→17:30)
[2019-11-30] MEDS: NICOTINE 7 MG/24 HOURS TOPICAL PATCH TD SCH (09:53)
[2019-11-30] MEDS: BUPRENORPHINE/NALOXONE 8 MG/2 MG FILM PACKET SL SCH (09:53)
[2019-11-30] MEDS: PRENATAL VITAMINS W/ FOLIC ACID TABLET (FP) PO SCH (09:53)
[2019-11-30] MEDS: IBUPROFEN 400 MG TABLET (FP) PO PRN ×2 (09:55→21:39)
[2019-11-30] MEDS: THIAMINE HCL 100 MG TABLET (FP) PO SCH (21:38)
[2019-11-30] MEDS: MELATONIN 5 MG TABLETS PO PRN (21:38)
[2019-12-01] MEDS: BACITRACIN 15 GM TUBE TOPICAL OINTMENT TP SCH ×3 (06:46→21:36)
[2019-12-01] MEDS ORDERED: PT OWN MED DRAWER 7, Y5N ONE (07:43)
[2019-12-01] MEDS: FERROUS SO4 325 MG TABLET (FP) PO SCH ×2 (07:45→17:30)
[2019-12-01] MEDS: IBUPROFEN 400 MG TABLET (FP) PO PRN ×2 (07:47→21:35)
[2019-12-01] MEDS: NICOTINE 7 MG/24 HOURS TOPICAL PATCH TD SCH (09:09)
[2019-12-01] MEDS: BUPRENORPHINE/NALOXONE 8 MG/2 MG FILM PACKET SL SCH (09:09)
[2019-12-01] MEDS: PRENATAL VITAMINS W/ FOLIC ACID TABLET (FP) PO SCH (09:09)
[2019-12-01] MEDS: MELATONIN 5 MG TABLETS PO PRN (21:35)
[2019-12-01] MEDS: THIAMINE HCL 100 MG TABLET (FP) PO SCH (21:35)
[2019-12-02] MEDS: BACITRACIN 15 GM TUBE TOPICAL OINTMENT TP SCH ×3 (06:43→21:48)
[2019-12-02] MEDS: IBUPROFEN 400 MG TABLET (FP) PO PRN ×2 (08:25→21:48)
[2019-12-02] MEDS: FERROUS SO4 325 MG TABLET (FP) PO SCH ×2 (08:25→17:25)
[2019-12-02] MEDS: PRENATAL VITAMINS W/ FOLIC ACID TABLET (FP) PO SCH (09:29)
[2019-12-02] MEDS: BUPRENORPHINE/NALOXONE 8 MG/2 MG FILM PACKET SL SCH (09:30)
[2019-12-02] MEDS: NICOTINE 7 MG/24 HOURS TOPICAL PATCH TD SCH (09:30)
[2019-12-02 12:31] LABS: BASO % 0.8 % (0-2.0); EOS % 2.4 % (0-4.5); HEMATOCRIT 32.9 % (32.4-45.2); HEMOGLOBIN 9.8 GM/dL (10.7-15.3); LYMPH % 32.9 % (8-40); MCHC 29.7 g/dl (32.0-36.0); MEAN CELL VOLUME 66.7 fl (80-96); MEAN PLT VOLUME 8.6 fl (7.5-11.1); MONO % 7.5 % (3.8-10.2); NEUT % 56.4 % (42.8-82.8); PLATELET COUNT 376 K/MM3 (134-434); RBC 4.94 M/mm3 (3.60-5.2); RDW 22.7 % (11.6-15.6); WHITE BLOOD COUNT 5.4 K/mm3 (4.0-10.0)
[2019-12-02 13:17] LABS: MCH 19.8 pg (25.7-33.7)
--- NOTE | 2019-12-02 15:28 | PN ---
S Progress Note (SOAP) Subjective: Report that patient has been scratching her incision site. Objective: Incision site: Clean, dry, well approximated, no signs or symptoms of infection noted. 12/02/19 15:23 Assessment: Healing surgical incision site 12/02/19 15:24 Plan: Continue to monitor,
[2019-12-02 15:32] LABS: ANISOCYTOSIS 1+; MACROCYTOSIS 0; OVALOCYTE 1+; PLATELET ESTIMATE NORMAL
[2019-12-02] MEDS: ACETAMINOPHEN 325 MG TABLET (FP) PO PRN (19:12)
[2019-12-02] MEDS: MELATONIN 5 MG TABLETS PO PRN (21:46)
[2019-12-02] MEDS: THIAMINE HCL 100 MG TABLET (FP) PO SCH (21:46)
[2019-12-03] MEDS: BACITRACIN 15 GM TUBE TOPICAL OINTMENT TP SCH ×3 (06:34→22:40)
[2019-12-03] MEDS: FERROUS SO4 325 MG TABLET (FP) PO SCH ×2 (09:00→18:26)
[2019-12-03] MEDS: NICOTINE 7 MG/24 HOURS TOPICAL PATCH TD SCH (09:26)
[2019-12-03] MEDS: BUPRENORPHINE/NALOXONE 8 MG/2 MG FILM PACKET SL SCH (09:26)
[2019-12-03] MEDS: PRENATAL VITAMINS W/ FOLIC ACID TABLET (FP) PO SCH (09:26)
[2019-12-03] MEDS: IBUPROFEN 400 MG TABLET (FP) PO PRN (21:25)
[2019-12-03] MEDS: THIAMINE HCL 100 MG TABLET (FP) PO SCH (21:26)
[2019-12-03] MEDS: DOCUSATE SODIUM 100 MG CAPSULE (FP) PO SCH (21:26)
[2019-12-03] MEDS: MELATONIN 5 MG TABLETS PO PRN (21:27)
[2019-12-04] MEDS: BACITRACIN 15 GM TUBE TOPICAL OINTMENT TP SCH ×3 (06:47→21:04)
[2019-12-04] MEDS: FERROUS SO4 325 MG TABLET (FP) PO SCH ×3 (08:50→18:40)
[2019-12-04] MEDS: PRENATAL VITAMINS W/ FOLIC ACID TABLET (FP) PO SCH (10:11)
[2019-12-04] MEDS: NICOTINE 7 MG/24 HOURS TOPICAL PATCH TD SCH (10:11)
[2019-12-04] MEDS: BUPRENORPHINE/NALOXONE 8 MG/2 MG FILM PACKET SL SCH (10:11)
[2019-12-04] MEDS: IBUPROFEN 400 MG TABLET (FP) PO PRN ×2 (10:14→21:03)
[2019-12-04] MEDS: ACETAMINOPHEN 325 MG TABLET (FP) PO PRN (14:35)
[2019-12-04] MEDS: DOCUSATE SODIUM 100 MG CAPSULE (FP) PO SCH (21:03)
[2019-12-04] MEDS: MELATONIN 5 MG TABLETS PO PRN (21:03)
[2019-12-04] MEDS: THIAMINE HCL 100 MG TABLET (FP) PO SCH (21:03)
[2019-12-05] MEDS: IBUPROFEN 400 MG TABLET (FP) PO PRN ×2 (04:11→21:19)
[2019-12-05] MEDS: BACITRACIN 15 GM TUBE TOPICAL OINTMENT TP SCH ×3 (06:17→21:21)
[2019-12-05] MEDS: FERROUS SO4 325 MG TABLET (FP) PO SCH ×3 (07:14→17:20)
[2019-12-05] MEDS: BUPRENORPHINE/NALOXONE 8 MG/2 MG FILM PACKET SL SCH (10:17)
[2019-12-05] MEDS: NICOTINE 7 MG/24 HOURS TOPICAL PATCH TD SCH (10:17)
[2019-12-05] MEDS: PRENATAL VITAMINS W/ FOLIC ACID TABLET (FP) PO SCH (10:17)
[2019-12-05] MEDS: MAGNESIUM HYDROX 2400MG/30ML ORAL SUSPENSION 30 ML CUP PO PRN (13:42)
[2019-12-05] MEDS: THIAMINE HCL 100 MG TABLET (FP) PO SCH (21:19)
[2019-12-05] MEDS: DOCUSATE SODIUM 100 MG CAPSULE (FP) PO SCH (21:19)
[2019-12-05] MEDS: MELATONIN 5 MG TABLETS PO PRN (21:20)
[2019-12-06] MEDS: BACITRACIN 15 GM TUBE TOPICAL OINTMENT TP SCH ×3 (06:17→21:41)
[2019-12-06] MEDS: FERROUS SO4 325 MG TABLET (FP) PO SCH ×3 (07:31→17:51)
[2019-12-06] MEDS: BUPRENORPHINE/NALOXONE 8 MG/2 MG FILM PACKET SL SCH (09:16)
[2019-12-06] MEDS: PRENATAL VITAMINS W/ FOLIC ACID TABLET (FP) PO SCH (09:16)
[2019-12-06] MEDS: NICOTINE 7 MG/24 HOURS TOPICAL PATCH TD SCH (09:16)
[2019-12-06] MEDS: IBUPROFEN 400 MG TABLET (FP) PO PRN ×2 (09:17→21:40)
[2019-12-06] MEDS: MELATONIN 5 MG TABLETS PO PRN (21:40)
[2019-12-06] MEDS: DOCUSATE SODIUM 100 MG CAPSULE (FP) PO SCH (21:40)
[2019-12-06] MEDS: THIAMINE HCL 100 MG TABLET (FP) PO SCH (21:41)
[2019-12-07] MEDS: BACITRACIN 15 GM TUBE TOPICAL OINTMENT TP SCH (06:24)
[2019-12-07] MEDS: FERROUS SO4 325 MG TABLET (FP) PO SCH ×3 (07:46→16:58)
[2019-12-07] MEDS ORDERED: PT OWN MED DRAWER 7, Y5N ONE (08:47)
[2019-12-07] MEDS: PRENATAL VITAMINS W/ FOLIC ACID TABLET (FP) PO SCH (09:32)
[2019-12-07] MEDS: BUPRENORPHINE/NALOXONE 8 MG/2 MG FILM PACKET SL SCH (09:32)
[2019-12-07] MEDS: NICOTINE 7 MG/24 HOURS TOPICAL PATCH TD SCH (09:32)
--- NOTE | 2019-12-07 14:39 | CONSULT ---
[facility] Psychiatric Consult - Data Date of interview: 12/07/19 (S) Admission source: [facility] Identifying data: Ms Davis is a 34 years old single Black female, mother of 3 children, unemployed with no source of income homeless admitted on 11/24/19 for rehabilitation for opioid and cocaine Substance Abuse History: Reports history of heroin and crack cocaine use. Refer to addiction counselor's summary for further information Medical History: Significant for anemia, bronchitis, hypertension, history of treatment for chlamydia and x3. Smokes 8 cigaretttes daily Psychiatric History: Denies history of previous psychiatric treament. However, reports sleeping poorly Physical/Sexual Abuse/Trauma History: Denies history of abuse as a child or DV relationship as an adult Additional Comment: 34 year old female with history of opioid dependence who is post- after delivery of baby and is here for continuation of rehab. She was started on suboxone while in the [facility] and detox was consulted on her on. She received total of 6 mg of suboxone on 11/23/19 while in [facility]. She was transferred here from [facility] to enter rehab and maintain until she can be discharged to a suboxone program. Mental Status Exam - Mental Status Exam Alert and Oriented to: Time, Place, Person Mood: Hopeful, Euthymic Patient Behavior: Cooperative Speech Pattern: Clear Voice Loudness: Normal Thought Process: Intact Hallucinations: Denies Suicidal Ideation: Denies Homicidal Ideation: Denies Insight/Judgement: Fair Sleep: Poorly Appetite: Good Muscle strength/Tone: Normal Gait/Station: Normal Psychiatric Findings - Problem List ([place] 1, 2,3) (1) Substance-induced sleep disorder Current Visit: Yes Status: Acute (2) Opioid dependence Current Visit: Yes Status: Acute (3) Cocaine dependence Current Visit: Yes Status: Acute (4) Nicotine dependence Current Visit: Yes Status: Chronic (5) Anemia Current Visit: Yes Status: Chronic (6) HTN (hypertension) Current Visit: Yes Status: Chronic (7) Bronchitis Current Visit: Yes Status: Chronic (8) Chlamydia contact, treated Current Visit: Yes Status: Resolved - Initial Treatment Plan Initial Treatment Plan: 1) Start Belsomra 10 mg po HS prn for insomnia. 2) Continue inpatient rehabilitation
[2019-12-07] MEDS: DOCUSATE SODIUM 100 MG CAPSULE (FP) PO SCH (21:31)
[2019-12-07] MEDS: THIAMINE HCL 100 MG TABLET (FP) PO SCH (21:31)
[2019-12-07] MEDS: MELATONIN 5 MG TABLETS PO PRN (21:32)
[2019-12-07] MEDS: IBUPROFEN 400 MG TABLET (FP) PO PRN (21:33)
[2019-12-07] MEDS: SUVOREXANT 10 MG TABLET PO PRN (21:34)
[2019-12-08] MEDS: FERROUS SO4 325 MG TABLET (FP) PO SCH ×3 (07:17→21:47)
[2019-12-08] MEDS: NICOTINE 7 MG/24 HOURS TOPICAL PATCH TD SCH (09:14)
[2019-12-08] MEDS: BUPRENORPHINE/NALOXONE 8 MG/2 MG FILM PACKET SL SCH (09:15)
[2019-12-08] MEDS: PRENATAL VITAMINS W/ FOLIC ACID TABLET (FP) PO SCH (09:15)
[2019-12-08] MEDS ORDERED: PT OWN MED DRAWER 7, Y5N ONE (10:16)
[2019-12-08] MEDS: MAGNESIUM HYDROX 2400MG/30ML ORAL SUSPENSION 30 ML CUP PO PRN (12:59)
[2019-12-08] MEDS: DOCUSATE SODIUM 100 MG CAPSULE (FP) PO SCH (17:20)
[2019-12-08] MEDS: THIAMINE HCL 100 MG TABLET (FP) PO SCH (21:46)
[2019-12-08] MEDS: IBUPROFEN 400 MG TABLET (FP) PO PRN (21:47)
[2019-12-08] MEDS: MELATONIN 5 MG TABLETS PO PRN (21:47)
[2019-12-08] MEDS: SUVOREXANT 10 MG TABLET PO PRN (21:49)
[2019-12-09] MEDS: FERROUS SO4 325 MG TABLET (FP) PO SCH ×3 (07:03→17:40)
[2019-12-09 07:20] VITALS: TEMP 98
[2019-12-09] MEDS: PRENATAL VITAMINS W/ FOLIC ACID TABLET (FP) PO SCH (10:25)
[2019-12-09] MEDS: BUPRENORPHINE/NALOXONE 8 MG/2 MG FILM PACKET SL SCH (10:26)
[2019-12-09] MEDS: NICOTINE 7 MG/24 HOURS TOPICAL PATCH TD SCH (10:26)
--- NOTE | 2019-12-09 14:03 | PN ---
S Progress Note Note: Patient reports sleeping poorly despita taking Belsomra 10 mg/hs prn. Requests that medication dosage be increased
[2019-12-09] MEDS: MELATONIN 5 MG TABLETS PO PRN (21:53)
[2019-12-09] MEDS: THIAMINE HCL 100 MG TABLET (FP) PO SCH (21:53)
[2019-12-09] MEDS: DOCUSATE SODIUM 100 MG CAPSULE (FP) PO SCH (21:54)
[2019-12-09] MEDS: SUVOREXANT 15 MG TABLET PO PRN (21:56)
[2019-12-10] MEDS: FERROUS SO4 325 MG TABLET (FP) PO SCH ×3 (08:38→21:30)
[2019-12-10] MEDS: NICOTINE 7 MG/24 HOURS TOPICAL PATCH TD SCH (10:08)
[2019-12-10] MEDS: PRENATAL VITAMINS W/ FOLIC ACID TABLET (FP) PO SCH (10:08)
[2019-12-10] MEDS: BUPRENORPHINE/NALOXONE 8 MG/2 MG FILM PACKET SL SCH (10:10)
[2019-12-10] MEDS: MELATONIN 5 MG TABLETS PO PRN (21:31)
[2019-12-10] MEDS: THIAMINE HCL 100 MG TABLET (FP) PO SCH (21:31)
[2019-12-10] MEDS: DOCUSATE SODIUM 100 MG CAPSULE (FP) PO SCH (21:31)
[2019-12-10] MEDS: SUVOREXANT 15 MG TABLET PO PRN (21:33)
[2019-12-10] MEDS: MAGNESIUM HYDROX 2400MG/30ML ORAL SUSPENSION 30 ML CUP PO PRN (22:29)
[2019-12-11 07:13] VITALS: BP 105/70; PULSE 75
[2019-12-11] MEDS: FERROUS SO4 325 MG TABLET (FP) PO SCH ×3 (07:29→17:29)
[2019-12-11] MEDS: NICOTINE 7 MG/24 HOURS TOPICAL PATCH TD SCH (09:10)
[2019-12-11] MEDS: PRENATAL VITAMINS W/ FOLIC ACID TABLET (FP) PO SCH (09:10)
[2019-12-11] MEDS: BUPRENORPHINE/NALOXONE 8 MG/2 MG FILM PACKET SL SCH (09:10)
[2019-12-11] MEDS ORDERED: PT OWN MED DRAWER 7, Y5N ONE (10:32)
--- NOTE | 2019-12-11 19:52 | DS ---
[facility] Rehab Discharge Summary - [facility] Rehab Discharge Summary Admission Date: 11/24/19 Discharge Date: 12/11/19 - History Present History: Opioid dependence Additional Comments: Patient is s/p C section in November, mandated by court to complete rehab. - Discharge Physical Exam Vital Signs: Vital Signs Temperature 98.0 F 12/11/19 06:40 Pulse Rate 75 12/11/19 06:40 Respiratory Rate 16 12/11/19 06:40 Blood Pressure 105/70 12/11/19 06:40 O2 Sat by Pulse Oximetry (%) Pertinent Admission Physical Exam Findings: Laboratory Last Values WBC 5.4 K/mm3 (4.0-10.0) 12/02/19 08:15 RBC 4.94 M/mm3 (3.60-5.2) 12/02/19 08:15 Hgb 9.8 GM/dL (10.7-15.3) L 12/02/19 08:15 Hct 32.9 % (32.4-45.2) 12/02/19 08:15 MCV 66.7 fl (80-96) L 12/02/19 08:15 MCH 19.8 pg (25.7-33.7) L 12/02/19 08:15 MCHC 29.7 g/dl (32.0-36.0) L 12/02/19 08:15 RDW 22.7 % (11.6-15.6) H 12/02/19 08:15 Plt Count 376 K/MM3 (134-434) D 12/02/19 08:15 MPV 8.6 fl (7.5-11.1) 12/02/19 08:15 Absolute Neuts (auto) 3.0 K/mm3 (1.5-8.0) 12/02/19 08:15 Neutrophils % 56.4 % (42.8-82.8) 12/02/19 08:15 Neutrophils % (Manual) 67.0 % (42.8-82.8) 11/27/19 10:10 Band Neutrophils % 1.0 % 11/27/19 10:10 Lymphocytes % 32.9 % (8-40) D 12/02/19 08:15 Lymphocytes % (Manual) 22.0 % (8-40) 11/27/19 10:10 Monocytes % 7.5 % (3.8-10.2) 12/02/19 08:15 Monocytes % (Manual) 5 % (3.8-10.2) 11/27/19 10:10 Eosinophils % 2.4 % (0-4.5) 12/02/19 08:15 Eosinophils % (Manual) 1.0 % (0-4.5) 11/27/19 10:10 Basophils % 0.8 % (0-2.0) 12/02/19 08:15 Basophils % (Manual) 0.0 % (0-2.0) 11/27/19 10:10 Myelocytes % (Man) 1 % (0-2) 11/27/19 10:10 Nucleated RBC % 0 % (0-0) 12/02/19 08:15 Metamyelocytes 1 % (0-2) 11/27/19 10:10 Hypochromia 0 12/02/19 08:15 Platelet Estimate Normal 12/02/19 08:15 Platelet Comment Present 12/02/19 08:15 Polychromasia 1+ 12/02/19 08:15 Poikilocytosis 1+ 12/02/19 08:15 Anisocytosis 1+ 12/02/19 08:15 Microcytosis 1+ 12/02/19 08:15 Macrocytosis 0 12/02/19 08:15 Spherocytes 1+ 12/02/19 08:15 Ovalocytes 1+ 12/02/19 08:15 [place] Cells 1+ 12/02/19 08:15 Acanthocytes (Spur) 1+ 12/02/19 08:15 Sodium 141 mmol/L (136-145) 11/25/19 08:00 Potassium 4.4 mmol/L (3.5-5.1) 11/25/19 08:00 Chloride 110 mmol/L (98-107) H 11/25/19 08:00 Carbon Dioxide 21 mmol/L (21-32) 11/25/19 08:00 Anion Gap 10 MMOL/L (8-16) 11/25/19 08:00 BUN 19.0 mg/dL (7-18) H 11/25/19 08:00 Creatinine 0.8 mg/dL (0.55-1.3) 11/25/19 08:00 Est GFR (CKD-EPI)AfAm 113.06 11/25/19 08:00 Est GFR (CKD-EPI)NonAf 97.55 11/25/19 08:00 Random Glucose 135 mg/dL (74-106) H 11/25/19 08:00 Calcium 8.5 mg/dL (8.5-10.1) 11/25/19 08:00 Total Bilirubin 0.1 mg/dL (0.2-1) L 11/25/19 08:00 AST 15 U/L (15-37) 11/25/19 08:00 ALT 21 U/L (13-61) 11/25/19 08:00 Alkaline Phosphatase 108 U/L (45-117) 11/25/19 08:00 Total Protein 5.9 g/dl (6.4-8.2) L 11/25/19 08:00 Albumin 2.1 g/dl (3.4-5.0) L 11/25/19 08:00 Urine Color Yellow 11/25/19 11:50 Urine Appearance Cloudy 11/25/19 11:50 Urine pH 6.0 (5.0-8.0) 11/25/19 11:50 Ur Specific [place] 1.024 (1.010-1.035) 11/25/19 11:50 Urine Protein 1+ (NEGATIVE) H 11/25/19 11:50 Urine Glucose (UA) Negative (NEGATIVE) 11/25/19 11:50 Urine Ketones Negative (NEGATIVE) 11/25/19 11:50 Urine Blood 3+ (NEGATIVE) H 11/25/19 11:50 Urine Nitrite Negative (NEGATIVE) 11/25/19 11:50 Urine Bilirubin Negative (NEGATIVE) 11/25/19 11:50 Urine Urobilinogen 0.2 mg/dL (0.2-1.0) 11/25/19 11:50 Ur Leukocyte Esterase 2+ (NEGATIVE) H 11/25/19 11:50 Urine WBC (Auto) 75 /hpf (0-5) 11/25/19 11:50 Urine RBC (Auto) 52 /hpf (0-4) 11/25/19 11:50 Urine Casts (Auto) 17 /lpf (0-8) 11/25/19 11:50 U Epithel Cells (Auto) 4.4 /HPF (0-5/HPF) 11/25/19 11:50 Urine Bacteria (Auto) 120.8 /hpf (NEGATIVE) 11/25/19 11:50 POC Urine HCG, Qual Positive 11/24/19 15:35 RPR Titer Nonreactive (NONREACTIVE) 11/25/19 08:00 - Medication Discharge Medications: Ambulatory Orders Acetaminophen [Tylenol .Regular Strength -] 500 mg PO Q4H PRN #30 tablet Ferrous Sulfate [Feosol] 325 mg PO BID 90 Days #60 tab 11/22/19 Ibuprofen [Motrin -] 600 mg PO Q4H PRN #30 tablet 11/22/19 Vitamins (Sjr) - 1 tab PO DAILY #30 tablet 11/22/19 - Medication-Assisted Treatment (MAT) Medication-Assisted Treatment (MAT): Yes Medication Prescribed: Buprenorphine - Discharge Instructions Diet, activity, other medical instructions: Diet: Activity: Other medical instructions: - Diagnosis (1) Anemia Current Visit: Yes Status: Chronic Qualifiers: Anemia type: iron deficiency (2) HTN (hypertension) Current Visit: Yes Status: Chronic Qualifiers: Hypertension type: essential hypertension Qualified Code(s): I10 - Essential (primary) hypertension (3) Nicotine dependence Current Visit: Yes Status: Chronic Qualifiers: Nicotine product type: cigarettes Substance use status: uncomplicated Qualified Code(s): F17.210 - Nicotine dependence, cigarettes, uncomplicated - AMA Did Patient Leave Against Medical Advice: Yes Additional Comments: Patient walked off floor before provider arrived on unit, patient is s/p C section and is court mandated to complete rehab.
== END 2019-12-11 19:35 | disposition left against medical advice (07) | DRG 561 ==
LOC: YASAS 13:56 → Y3E 15:59
PROVIDERS: ADMIT Allergy & Immunology; ATTEND Allergy & Immunology
PROC: HZ42ZZZ Group Counseling for Substance Abuse Treatment, Cognitive-Behavioral (ICD-10-PCS; principal; 2019-11-24)
DX: O99.325 Drug use complicating the puerperium (principal); F11.20 Opioid dependence, uncomplicated; F14.20 Cocaine dependence, uncomplicated; F17.210 Nicotine dependence, cigarettes, uncomplicated; F19.282 Other psychoactive substance dependence with psychoactive substance-induced sleep disorder; I10 Essential (primary) hypertension; D50.9 Iron deficiency anemia, unspecified; J45.20 Mild intermittent asthma, uncomplicated; Z87.42 Personal history of other diseases of the female genital tract; Z56.0 Unemployment, unspecified; Z59.0 Homelessness
CPT/HCPCS: 36415; 80053; 81003; 81025; 85025; 85027; 86593

== ENCOUNTER 2021-10-20 13:34 | Emergency (ER) | payer OTHER ==
[2021-10-20 13:48] VITALS: BP 111/75; PULSE 85; TEMP 97.3; BMI 27.8
[2021-10-20 14:43] LABS: EPI CELLS >36 /uL (0-25.1); HYALINE CASTS 12 /uL (0-3.1); URINE APPEARANCE CLOUDY; URINE BACTERIA 463 /uL (0-1359); URINE BILIRUBIN NEGATIVE (NEGATIVE); URINE COLOR YELLOW; URINE GLUCOSE (UA) NEGATIVE (NEGATIVE); URINE KETONE TRACE (NEGATIVE); URINE LEUK ESTERASE NEGATIVE (NEGATIVE); URINE NITRITE NEGATIVE (NEGATIVE); URINE PROTEIN 2+ (NEGATIVE); URINE RBC 19 /uL (0-23.9); URINE WBC 20 /uL (0-25.8)
[2021-10-20 14:44] LABS: HCG,QUALITATIVE URINE Negative
[2021-10-20 14:55] LABS: METHADONE, UR NEGATIVE (NEGATIVE); PHENCYCLIDINE,URINE NEGATIVE (NEGATIVE); URINE BARBITURATES NEGATIVE (NEGATIVE); URINE BENZODIAZEPINES NEGATIVE (NEGATIVE)
[2021-10-20 14:56] LABS: URINE AMPHETAMINES NEGATIVE (NEGATIVE)
[2021-10-20 15:00] LABS: COCAINE, UR POSITIVE (NEGATIVE); OPIATES, URI POSITIVE (NEGATIVE)
== END 2021-10-20 16:00 | disposition home or self-care (01) ==
LOC: JER 13:34
DX: R32 Unspecified urinary incontinence (principal)
CPT/HCPCS: 80307; 81003; 84703; 87086; 99283-25

== ENCOUNTER 2024-09-24 16:25 | Emergency (ER) | payer OTHER ==
[2024-09-24 16:29] VITALS: BP 122/77; PULSE 109; RESP 18; TEMP 99.4; BMI 25.0
[2024-09-24] MEDS ORDERED: DIPHTH,PERTUSS(ACELL),TET 0.5 ML DISP.SYRIN IM ONE (17:09)
[2024-09-24] MEDS: DIPHTH,PERTUSS(ACELL),TET 0.5 ML DISP.SYRIN IM ONE (17:09)
== END 2024-09-24 17:35 | disposition home or self-care (01) ==
LOC: JERFT 16:25
DX: S90.812A Abrasion, left foot, initial encounter (principal); W25.XXXA Contact with sharp glass, initial encounter
CPT/HCPCS: 90715; 99283-25

== ENCOUNTER 2024-09-24 17:50 | Inpatient (IN) | payer OTHER ==
[~2024-09-24 17:50] MED LIST: ACETAMINOPHEN 325 MG TABLET (FP) PO PRN; BENZOCAINE/MENTHOL (CHLORASEPTIC ) LOZENGE MM PRN; BENZONATATE 200 MG CAPSULE PO PRN; BISMUTH SUBSALICYLATE 524 MG/30 ML PO PRN; DICYCLOMINE HCL 10 MG CAPSULE PO PRN; IBUPROFEN 400 MG TABLET (FP) PO PRN; IBUPROFEN 600 MG TABLET (FP) PO PRN; LOPERAMIDE HCL 2 MG CAPSULE PO PRN; MAG HYDROX/AL HYDROX/SIMETH 30 ML UNIT-DOSE CUP PO PRN; MAGNESIUM HYDROX 2400MG/30ML ORAL SUSPENSION 30 ML CUP PO PRN; NALOXONE (NARCAN) HCL 4 MG/0.1 ML SPRAY NS PRN; NICOTINE POLACRILEX 2 MG GUM BUC PRN; NICOTINE POLACRILEX 2 MG LOZENGE BC PRN; ONDANSETRON *ODT* 4 MG TABLET SL PRN; P-EPHED 60MG/TRIPROLIDI 2.5MG TABLET PO PRN; POLYETHYLENE GLYCOL (HEALTHYLAX) 3350 17 GM PACKET PO PRN; guaiFENesin 600 MG TABLET.ER (FP) PO PRN
[2024-09-24 17:57] VITALS: BMI 26.3
[2024-09-24] MEDS: hydrOXYzine PAMOATE 25 MG CAPSULE (FP) PO PRN (22:12)
[2024-09-24] MEDS: MELATONIN 5 MG TABLETS PO SCH (22:12)
[2024-09-24] MEDS: METHOCARBAMOL 500 MG TABLET PO PRN (22:12)
[2024-09-24] MEDS: THIAMINE 100 MG TABLET PO SCH (22:12)
[2024-09-25 09:22] LABS: HEMATOCRIT 34.4 % (32.4-45.2); HEMOGLOBIN 10.9 GM/dL (10.7-15.3); MCH 24.1 pg (25.7-33.7); MCHC 31.6 g/dl (32.0-36.0); MEAN CELL VOLUME 76.3 fl (80-96); MEAN PLT VOLUME 8.3 fl (7.5-11.1); PLATELET COUNT 237 10^3/uL (134-434); RBC 4.51 M/mm3 (3.60-5.2); RDW 20.5 % (11.6-15.6); WHITE BLOOD COUNT 4.7 K/mm3 (4.0-10.0)
[2024-09-25 09:29] LABS: POTASSIUM 3.6 mmol/L (3.5-5.1)
[2024-09-25 09:38] LABS: CALCIUM 8.9 mg/dL (8.5-10.1)
[2024-09-25 09:39] LABS: ALBUMIN 3.5 g/dl (3.4-5.0); BLOOD UREA NITROGEN 11.8 mg/dL (7-18)
[2024-09-25 09:42] LABS: CREATININE 0.6 mg/dL (0.55-1.3)
[2024-09-25 09:43] LABS: BILIRUBIN,TOTAL 0.5 mg/dL (0.2-1)
[2024-09-25 09:44] LABS: TOT PROT 6.9 g/dl (6.4-8.2)
[2024-09-25] MEDS: PRENATAL VITAMINS W/ FOLIC ACID TABLET (FP) PO SCH (09:50)
[2024-09-25 11:06] LABS: HIV INTERPRETATION NEGATIVE (NEGATIVE)
[2024-09-25] MEDS: FERROUS SO4 325 MG TABLET (FP) PO SCH (22:25)
[2024-09-26] MEDS ORDERED: NALOXONE (NYS OPIOID OVERDOSE PROGRAM) 4 MG/0.1 ML SPRAY NS PRN (12:00)
[2024-09-26] MEDS: methaDONE HCL 10 MG TABLET (FOR DETOX USE ONLY) PO ONE (14:15)
[2024-09-27 21:11] VITALS: RESP 16
[2024-09-27] MEDS: cloNIDine HCL 0.1 MG TABLET PO PRN (22:22)
[2024-09-28 09:48] VITALS: PULSE 61
[2024-09-28] MEDS: methaDONE HCL 10 MG TABLET (FOR DETOX USE ONLY) PO ONE (09:56)
[2024-09-28 16:35] VITALS: BP 119/66; TEMP 98.6
[2024-09-28] MEDS: NALOXONE (NYS OPIOID OVERDOSE PROGRAM) 4 MG/0.1 ML SPRAY NS ONE (17:37)
[2024-09-30] MEDS ORDERED: methaDONE HCL 10 MG TABLET (FOR DETOX USE ONLY) PO ONE (10:00)
== END 2024-09-28 17:30 | disposition left against medical advice (07) | DRG 770 ==
LOC: YASAS 17:50 → Y3N 18:35
PROVIDERS: ADMIT Allergy & Immunology; ATTEND Surgery
PROC: HZ2ZZZZ Detoxification Services for Substance Abuse Treatment (ICD-10-PCS; principal; 2024-09-24)
DX: F11.23 Opioid dependence with withdrawal (principal); F14.20 Cocaine dependence, uncomplicated; F17.210 Nicotine dependence, cigarettes, uncomplicated; D50.9 Iron deficiency anemia, unspecified; I10 Essential (primary) hypertension; Z56.0 Unemployment, unspecified; Z59.00 Homelessness unspecified
CPT/HCPCS: 36415; 80053; 80305; 80307; 81025; 85027; 86780; 87389; 93005; 93010